=== PATIENT | male | born 1955 | race Caucasian/White ===

== ENCOUNTER 2021-06-29 14:38 | Emergency (ER) | payer MEDICAID ==
[2021-06-29 15:01] LABS: BASOPHILS # (AUTO) 0.1 10^3/uL (0.0-0.1); BASOPHILS % (AUTO) 0.7 %; EOSINOPHILS # (AUTO) 0.3 10^3/uL (0.0-0.7); EOSINOPHILS % (AUTO) 2.6 %; HGB - HEMOGLOBIN 12.4 g/dL (14.0-18.0); LYMPHOCYTES # (AUTO) 2.3 10^3/uL (1.5-3.5); LYMPHOCYTES % (AUTO) 19.8 %; MEAN CORPUSCULAR HEMOGLOBIN 30.9 pg (27.0-31.0); MEAN CORPUSCULAR HGB CONC 33.5 g/dL (32.0-36.0); MEAN CORPUSCULAR VOLUME 92.3 fL (80.0-94.0); MEAN PLATELET VOLUME 8.2 fL (7.4-11.4); MONOCYTES # (AUTO) 1.2 10^3/uL (0.0-1.0); NEUTROPHILS # (AUTO) 7.8 10^3/uL (1.5-6.6); NEUTROPHILS % (AUTO) 66.7 %; PLT - PLATELET COUNT 365 10^3/uL (130-450); RED BLOOD COUNT 4.01 10^6/uL (4.70-6.10); RED CELL DISTRIBUTION WIDTH 12.3 % (12.0-15.0); WHITE BLOOD COUNT 11.7 x10^3/uL (4.8-10.8)
[2021-06-29 15:15] LABS: ALBUMIN/GLOBULIN RATIO 1.1 (1.0-2.2); BILIRUBIN,TOTAL 0.5 mg/dL (0.2-1.0); CALCIUM 9.2 mg/dL (8.5-10.3); CREATININE 0.7 mg/dL (0.6-1.2); POTASSIUM 4.3 mmol/L (3.5-5.0); TOTAL PROTEIN 7.8 g/dL (6.7-8.2)
--- NOTE | 2021-06-29 15:39 | ED Physician Documentation ---
History of Present Illness - Stated complaint Stated Complaint: BLOOD IN URINE - Chief complaint Chief Complaint: Abd Pain - Additonal information Additional information: 66-year-old male presents the emergency department for evaluation of painful hematuria that he noted this morning. He reports passing blood clots. There have been no fevers. No history of hematuria in the past no history of nephrolithiasis. This gentleman reports that he was rather constipated for about a week and he took some laxatives which resolved the constipation that then he felt rectal tenderness so he took some aspirin about 3 days ago. He denies that he is having hematochezia or melena. Denies daily NSAID or aspirin use. Not anticoagulated. No history of previous surgical history. Daily tobacco user no alcohol use. Review of Systems Constitutional: denies: Fever, Chills Eyes: reports: Reviewed and negative Nose: reports: Reviewed and negative Throat: reports: Reviewed and negative Cardiac: reports: Reviewed and negative Respiratory: reports: Reviewed and negative GI: reports: Abdominal Pain, Constipation. denies: Nausea, Vomiting, Hematemesis, Bloody / black stool : reports: Dysuria, Hematuria Skin: reports: Reviewed and negative Musculoskeletal: reports: Reviewed and negative Neurologic: reports: Reviewed and negative Psychiatric: reports: Reviewed and negative PD PAST MEDICAL HISTORY - Present Medications Home Medications: Ambulatory Orders Medication Instructions Recorded Confirmed Ciprofloxacin HCl [Cipro] 500 mg PO BID #20 tablet 06/29/21 - Allergies Allergies/Adverse Reactions: Allergies Allergy/AdvReac Type Severity Reaction Status Date / Time No Known Drug Allergies Allergy Verified 06/29/21 14:47 PD ED PE EXPANDED - General General: Alert, No acute distress - Cardiac Cardiac: Regular Rate, Radial strong equal, Cap refill < 2 sec - Respiratory Respiratory: Clear to ausultation luciana. No: Distress, Labored - Abdomen Abdomen: Normal Bowel sounds, Tender to palpation, Generalized/diffuse (generalized abdominal tenderness without guarding or rebound). No: Rebound, Guarding - Derm Derm: Normal color, Warm and dry. No: Rash - Extremities Extremities: Normal. No: Deformity, Tenderness - Neuro Neuro: Alert and Oriented X 3, CNII-XII intact - GCS Eye Opening: Spontaneous Motor: Obeys Commands Verbal: Oriented Total: 15 Results - Vitals Vitals: Vital Signs - 24 hr 06/29/21 06/29/21 06/29/21 14:43 15:30 15:32 Temperature 36 C L 37.1 C Heart Rate 96 79 86 Respiratory 16 16 Rate Blood Pressure 112/67 109/75 O2 Saturation 99 99 100 Oxygen O2 Source Room air - Labs Labs: Laboratory Tests 06/29/21 06/29/21 06/29/21 14:55 14:55 14:55 WBC 11.7 H RBC 4.01 L Hgb 12.4 L Hct 37.0 L MCV 92.3 MCH 30.9 MCHC 33.5 RDW 12.3 Plt Count 365 MPV 8.2 Neut # (Auto) 7.8 H Lymph # (Auto) 2.3 [place] # (Auto) 1.2 H Eos # (Auto) 0.3 Baso # (Auto) 0.1 Absolute Nucleated RBC 0.00 Nucleated RBC % 0.0 Sodium 131 L Potassium 4.3 Chloride 93 L Carbon Dioxide 30 Anion Gap 8.0 BUN 11 Creatinine 0.7 Estimated GFR (MDRD) 114 Glucose 117 H Calcium 9.2 Total Bilirubin 0.5 AST 16 ALT 15 Alkaline Phosphatase 86 Total Protein 7.8 Albumin 4.0 Globulin 3.8 Albumin/Globulin Ratio 1.1 Lipase 25 Urine Color Urine Clarity Urine pH Ur Specific [place] Urine Protein Urine Glucose (UA) Urine Ketones Urine Occult Blood Urine Nitrite Urine Bilirubin Urine Urobilinogen Ur Leukocyte Esterase Urine RBC Urine WBC Ur Squamous Epith Cells Urine Bacteria Ur Microscopic Review Urine Culture Comments Blood Type A POSITIVE Antibody Screen NEGATIVE 06/29/21 15:20 WBC RBC Hgb Hct MCV MCH MCHC RDW Plt Count MPV Neut # (Auto) Lymph # (Auto) [place] # (Auto) Eos # (Auto) Baso # (Auto) Absolute Nucleated RBC Nucleated RBC % Sodium Potassium Chloride Carbon Dioxide Anion Gap BUN Creatinine Estimated GFR (MDRD) Glucose Calcium Total Bilirubin AST ALT Alkaline Phosphatase Total Protein Albumin Globulin Albumin/Globulin Ratio Lipase Urine Color RED/BLOODY Urine Clarity BLOODY Urine pH 7.0 Ur Specific [place] 1.015 Urine Protein >=300 H Urine Glucose (UA) 100 H Urine Ketones 15 H Urine Occult Blood LARGE H Urine Nitrite POSITIVE H Urine Bilirubin NEGATIVE Urine Urobilinogen >=8.0 H Ur Leukocyte Esterase LARGE H Urine RBC TNTC H Urine WBC 11-25 H Ur Squamous Epith Cells FEW Squamous Urine Bacteria Few Ur Microscopic Review INDICATED Urine Culture Comments INDICATED Blood Type Antibody Screen - Rads (name of study) CT abd/pelvis Radiology: Final report received (Diffuse irregular bladder wall thickening and enhancement is most consistent with a bladder carcinoma. Urologic consult advised. Large left inguinal subcutaneous cyst likely a sebaceous cyst.) PD MEDICAL DECISION MAKING - ED course Complexity details: reviewed results, considered differential, d/w patient ED course: 66-year-old male presents emergency department for evaluation of acute hematuria that he noted this morning. He does also endorse dysuria. Urine does show signs of infection. However CT scan is concerning for a bladder carcinoma. He does not have signs of urinary obstruction. This gentleman is without any insurance options. Given the hour of the day social work is not available but I will request that they follow-up with him tomorrow. I have also asked patient registration to see the patient to help him begin the process of obtaining insurance. Patient will be started on ciprofloxacin. Given the name of Dr. Law Yi outpatient physician who is seeing ER patients in follow-up next week. Discussed the concerns for obstruction in the setting of significant hematuria. Emergent return precautions were otherwise discussed. Departure - Departure Disposition: 01 Home, Self Care Clinical Impression: Bladder mass Hematuria Qualifiers: Hematuria type: gross Qualified Code(s): R31.0 - Gross hematuria UTI (urinary tract infection) Qualifiers: Urinary tract infection type: acute cystitis Hematuria presence: with hematuria Qualified Code(s): N30.01 - Acute cystitis with hematuria Record reviewed to determine appropriate education?: Yes Instructions: Cancer Bladder Follow-Up: Cong Morales MD [Physician No Access] - Prescriptions: Ciprofloxacin HCl [Cipro] 500 mg PO BID #20 tablet Comments: Daniel you are seen in the emergency department today for blood in your urine. Unfortunately the CAT scan shows that you most likely have cancer within your bladder. There is also concerned that you have infection with in your urine. Please fill the prescription for the antibiotic. It has been sent electronically to the [facility] in [place]. It is going to be very important that you establish care with a primary care doctor. You will need referral to a urologist and/or a r developer for further evaluation and treatment of the cancer. I will make sure that our manager social services is able to call you tomorrow to help follow-up with obtaining insurance. If at any point you are unable to urinate, you have fevers, chest pain or unco ntrolled vomiting then please return immediately to the emergency department. I have given you the name and number of Dr. Morales. He is the physician that is seeing ER patients in follow-up next week. It is important that you call to schedule this appointment.
[2021-06-29 15:43] LABS: BILIRUBIN,URINE NEGATIVE (NEGATIVE); GLUCOSE, URINE (UA) 100 mg/dL (NEGATIVE); KETONES,URINE (UA) 15 mg/dL (NEGATIVE); LEUKOCYTE ESTERASE, URINE LARGE (NEGATIVE); NITRITE,URINE POSITIVE (NEGATIVE); OCCULT BLOOD,URINE LARGE (NEGATIVE); PROTEIN,URINE >=300 mg/dL (NEGATIVE); UROBILINOGEN,URINE >=8.0 E.U./dL (NORMAL)
[2021-06-29] MEDS ORDERED: IOVERSOL 320 100 ML VIAL IVP ONE ×2 (15:43→16:18)
[2021-06-29 15:46] LABS: CLARITY,URINE BLOODY (CLEAR)
[2021-06-29 15:52] LABS: BACTERIA,URINE Few /HPF (None Seen); RBC,URINE TNTC /HPF (0-5); SQUAMOUS EPITHELIAL CELL,UR FEW Squamous (<= Few)
[2021-06-29] MEDS ORDERED: cefTRIAXone 1 GM in SODIUM CHLORIDE 0.9% MINIBAG 100 ML IV STA (15:54)
--- NOTE | 2021-06-29 16:42 | CT Report ---
PROCEDURE: CT abdomen and pelvis with contrast INDICATIONS: hematuria; recent constipation and now rectal pain CONTRAST: IV CONTRAST: Optiray 320 ml: 100 PO CONTRAST: *NO PO CONTRAST TECHNIQUE: After the administration of intravenous contrast, 5 mm thick sections acquired from the diaphragms to the symphysis. 5 mm thick coronal and sagittal reformats were acquired. For radiation dose reducti on, the following was used: automated exposure control, adjustment of mA and/or kV according to pedrito ent size. COMPARISON: None. FINDINGS: Image quality: Excellent. ABDOMEN: Lung bases: Lung bases are clear. Heart size is normal. Solid organs: Liver and spleen are normal in size and enhancement. Gallbladder unremarkable Biliar y system is non dilated. Pancreas enhances normally. No adrenal nodules. Kidneys demonstrate syeda l size and enhancement, without hydronephrosis. Peritoneum and bowel: Bowel loops demonstrate normal wall thickness and caliber. No free fluid or a ir. Nodes and vessels: No retroperitoneal or mesenteric adenopathy by size criteria. Aorta and inferior vena cava are normal in size. Diffuse atherosclerotic vascular calcification abdominal aorta withou t aneurysm or dissection. Miscellaneous: No ventral hernias. PELVIS: Genitourinary: Urinary bladder is grossly of normal. There is irregular wall thickening, irregular en hancement and left-sided bladder diverticulum measuring 3.3 cm. Miscellaneous: No inguinal hernias or adenopathy. Left inguinal subcutaneous cyst measures 3.2 cm, probably reflects sebaceous cyst. Bones: No suspicious bony lesions. No vertebral body compression fractures. IMPRESSION: 1. Diffuse irregular bladder wall thickening and enhancement is most consistent with bladder carcinom a. Urologic consult advised. 2. Large left inguinal subcutaneous cyst, likely sebaceous cyst. Reviewed by: Ike Matos MD on 06/29/2021 3:40 PM AKDT Approved by: Ike Matos MD on 06/29/2021 3:40 PM AKDT Station ID: [id number]
[2021-06-29 17:07] VITALS: BP 121/75
[2021-06-29] MEDS ORDERED: SODIUM CHLORIDE 0.9% 1,000 ML IV STA (17:10)
== END 2021-06-29 17:34 | disposition home or self-care (01) ==
LOC: ED 14:38
DX: N30.01 Acute cystitis with hematuria (principal); N32.89 Other specified disorders of bladder; F17.200 Nicotine dependence, unspecified, uncomplicated
CPT/HCPCS: 36415; 74177; 80053; 81001; 83690; 85025; 86850; 86900; 86901; 87086; 96365; 99284; Q9967; 81003

== ENCOUNTER 2021-08-04 10:05 | Emergency (ER) | payer MEDICAID ==
[2021-08-04 11:32] LABS: BILIRUBIN,URINE NEGATIVE (NEGATIVE); GLUCOSE, URINE (UA) NEGATIVE (NEGATIVE); KETONES,URINE (UA) NEGATIVE (NEGATIVE); LEUKOCYTE ESTERASE, URINE MODERATE (NEGATIVE); NITRITE,URINE NEGATIVE (NEGATIVE); OCCULT BLOOD,URINE LARGE (NEGATIVE); PROTEIN,URINE 100 mg/dL (NEGATIVE); UROBILINOGEN,URINE 0.2 (NORMAL) E.U./dL (NORMAL)
--- NOTE | 2021-08-04 11:39 | ED Physician Documentation ---
History of Present Illness - Stated complaint Stated Complaint: MALE - Chief complaint Chief Complaint: UTI - Additonal information Additional information: 66-year-old male returns to the emergency department with chief complaint of dysuria and hematuria. He was seen by me on 07-18 with the same complaint. Unfortunately CT of the abdomen and pelvis showed a mass within the bladder likely representing a carcinoma. These findings were discussed at length with the patient. He has been able to arrange follow-up with urology on August 13 with [facility]. At the time of the last visit I did Tim a prescription for antibiotics which he stated improve the hematuria until now. He does not feel obstructed. Reports passing small clots but feels as though he is able to fully empty bladder Patient denies weight loss but states he does not weigh himself. No cough increasing fatigue, fevers or night sweats. He states that he has felt well until he began having hematuria again last night. Review of Systems Constitutional: denies: Fever, Chills, Fatigue, Weight Loss, Sweats Eyes: reports: Reviewed and negative Nose: reports: Reviewed and negative Throat: reports: Reviewed and negative Cardiac: reports: Reviewed and negative Respiratory: reports: Reviewed and negative GI: reports: Abdominal Pain : reports: Dysuria, Hematuria Skin: reports: Reviewed and negative Musculoskeletal: reports: Reviewed and negative PD PAST MEDICAL HISTORY - Present Medications Home Medications: Ambulatory Orders Medication Instructions Recorded Confirmed No Known Home Medications 08/04/21 08/04/21 - Allergies Allergies/Adverse Reactions: Allergies Allergy/AdvReac Type Severity Reaction Status Date / Time No Known Drug Allergies Allergy Verified 08/04/21 10:17 PD ED PE EXPANDED - General General: Alert, Other (Thin cachectic appearance) - Cardiac Cardiac: Regular Rate, Radial strong equal, Pedal strong equal, Cap refill < 2 sec. No: Murmur Present - Respiratory Respiratory: Clear to ausultation luciana. No: Distress, Labored - Abdomen Abdomen: Normal Bowel sounds, Tender to palpation, Suprapubic (Suprapubic tenderness without guarding or rebound. No flank or CVA tenderness noted. Negative McBurney's negative Gomez's.) - Back Back: Normal exam. No: Soft tissue tenderness, CVA TTP right, CVA TTP left - Derm Derm: Normal color, Warm and dry. No: Rash, Petecchiae, Purpura - Extremities Extremities: Normal. No: Deformity, Tenderness - Neuro Neuro: Alert and Oriented X 3, CNII-XII intact - GCS Eye Opening: Spontaneous Motor: Obeys Commands Verbal: Oriented Total: 15 Results - Vitals Vitals: Vital Signs - 24 hr 08/04/21 10:14 Temperature 36.4 C L Heart Rate 84 Respiratory 14 Rate Blood Pressure 113/63 O2 Saturation 99 Oxygen O2 Source Room air - Labs Labs: Laboratory Tests 08/04/21 08/04/21 08/04/21 11:15 11:54 11:54 WBC 10.1 RBC 3.65 L Hgb 10.8 L Hct 33.7 L MCV 92.3 MCH 29.6 MCHC 32.0 RDW 12.7 Plt Count 341 MPV 8.5 Neut # (Auto) 7.3 H Lymph # (Auto) 1.6 [place] # (Auto) 0.9 Eos # (Auto) 0.3 Baso # (Auto) 0.1 Absolute Nucleated RBC 0.00 Nucleated RBC % 0.0 Sodium 140 Potassium 3.8 Chloride 102 Carbon Dioxide 27 Anion Gap 11.0 BUN 13 Creatinine 0.9 Estimated GFR (MDRD) 85 L Glucose 99 Calcium 9.2 Total Bilirubin 0.7 AST 11 ALT 14 Alkaline Phosphatase 82 Total Protein 7.4 Albumin 3.7 Globulin 3.7 Albumin/Globulin Ratio 1.0 Lipase 21 L Urine Color LT RED Urine Clarity CLOUDY Urine pH 6.0 Ur Specific [place] 1.020 Urine Protein 100 H Urine Glucose (UA) NEGATIVE Urine Ketones NEGATIVE Urine Occult Blood LARGE H Urine Nitrite NEGATIVE Urine Bilirubin NEGATIVE Urine Urobilinogen 0.2 (NORMAL) Ur Leukocyte Esterase MODERATE H Urine RBC TNTC H Urine WBC >25 H Ur Epithelial Cells RARE Renal Tubular Ur Squamous Epith Cells RARE Squamous Urine Bacteria Rare Ur Microscopic Review INDICATED Urine Culture Comments INDICATED PD MEDICAL DECISION MAKING - ED course Complexity details: reviewed results, re-evaluated patient, d/w patient ED course: 66-year-old male return to the emergency department for evaluation of hematuria. I saw him for similar in early June and a CT of the abdomen showed a bladder mass likely a carcinoma. This gentleman is scheduled to see urology on 13 August. At the time of the first ED visit he was sent home with a prescription for antibiotics however today's urine though there are many WBCs there are very rare bacteria. Last culture was negative. I will defer antibiotics at this time unless the culture is positive. Screening CBC and chemistry are otherwise unremarkable. This gentleman was given a CD disc of his recent imaging to take with him to the follow-up appointment. Reassuringly though he has hematuria there is no obstruction. Emergent return precautions were discussed. Departure - Departure Disposition: 01 Home, Self Care Clinical Impression: Hematuria Qualifiers: Hematuria type: gross Qualified Code(s): R31.0 - Gross hematuria Condition: Stable Record reviewed to determine appropriate education?: Yes Comments: Daniel your urine today does not suggest infection. I would like to defer any antibiotics unless the culture is positive. The blood in your urine can be uncomfortable when you pee. I encourage you to stay very well-hydrated in order to help you pass the urine and blood clots more easily. If at any point you feel that you cannot adequately pee, your bladder is getting distended or you are developing abdominal pain or fevers then please return to the ER. We are giving you a CD Josep disc to take with you to your urology appointment next week.
[2021-08-04 11:40] LABS: CLARITY,URINE CLOUDY (CLEAR)
[2021-08-04 11:53] LABS: BACTERIA,URINE Rare /HPF (None Seen); EPITHELIAL CELLS,UR RARE Renal Tubular /HPF (<= Few); RBC,URINE TNTC /HPF (0-5); SQUAMOUS EPITHELIAL CELL,UR RARE Squamous (<= Few); WBC,URINE >25 /HPF (0-3)
[2021-08-04 11:59] LABS: BASOPHILS # (AUTO) 0.1 10^3/uL (0.0-0.1); BASOPHILS % (AUTO) 0.8 %; EOSINOPHILS # (AUTO) 0.3 10^3/uL (0.0-0.7); EOSINOPHILS % (AUTO) 2.7 %; HCT - HEMATOCRIT 33.7 % (42.0-52.0); HGB - HEMOGLOBIN 10.8 g/dL (14.0-18.0); LYMPHOCYTES # (AUTO) 1.6 10^3/uL (1.5-3.5); LYMPHOCYTES % (AUTO) 15.7 %; MEAN CORPUSCULAR HEMOGLOBIN 29.6 pg (27.0-31.0); MEAN CORPUSCULAR VOLUME 92.3 fL (80.0-94.0); MEAN PLATELET VOLUME 8.5 fL (7.4-11.4); MONOCYTES # (AUTO) 0.9 10^3/uL (0.0-1.0); MONOCYTES % (AUTO) 8.6 %; NEUTROPHILS # (AUTO) 7.3 10^3/uL (1.5-6.6); NEUTROPHILS % (AUTO) 71.9 %; PLT - PLATELET COUNT 341 10^3/uL (130-450); RED BLOOD COUNT 3.65 10^6/uL (4.70-6.10); RED CELL DISTRIBUTION WIDTH 12.7 % (12.0-15.0); WHITE BLOOD COUNT 10.1 x10^3/uL (4.8-10.8)
[2021-08-04 12:11] LABS: ALBUMIN 3.7 g/dL (3.2-5.5); BILIRUBIN,TOTAL 0.7 mg/dL (0.2-1.0); CALCIUM 9.2 mg/dL (8.5-10.3); CREATININE 0.9 mg/dL (0.6-1.2); POTASSIUM 3.8 mmol/L (3.5-5.0); TOTAL PROTEIN 7.4 g/dL (6.7-8.2)
[2021-08-04 12:27] VITALS: BP 112/65
== END 2021-08-04 12:25 | disposition home or self-care (01) ==
LOC: ED 10:05
DX: R31.0 Gross hematuria (principal); N32.89 Other specified disorders of bladder
CPT/HCPCS: 36415; 80053; 81001; 81003; 83690; 85025; 87086; 99283; 99284

== ENCOUNTER 2022-07-04 09:15 | Inpatient (IN) | payer MEDICAID ==
--- NOTE | 2022-07-04 09:56 | XRAY Report ---
PROCEDURE: Chest 1 View X-Ray INDICATIONS: SOA TECHNIQUE: One view of the chest was acquired. COMPARISON: Lung bases on CT abdomen and pelvis 06/29/2021. FINDINGS: Surgical changes and devices: Right-sided port with the catheter tip at the lower third of the SVC. Lungs and pleura: No pleural effusions or pneumothorax. Lungs are clear. Lung volumes are somewhat prominent. Mediastinum: Mediastinal contours appear normal. Heart size is normal. Bones and chest wall: No suspicious bony lesions. Overlying soft tissues appear unremarkable. IMPRESSION: No acute cardiopulmonary abnormality. Reviewed by: Rj Williamson MD on 07/04/2022 9:54 AM PDT Approved by: Rj Williamson MD on 07/04/2022 9:54 AM PDT Station ID: [id number]
[2022-07-04 10:10] LABS: BASOPHILS % (AUTO) 0.9 %; EOSINOPHILS % (AUTO) 0.2 %; HGB - HEMOGLOBIN 9.4 g/dL (14.0-18.0); LYMPHOCYTES % (AUTO) 4.2 %; MEAN CORPUSCULAR HEMOGLOBIN 32.3 pg (27.0-31.0); MEAN CORPUSCULAR HGB CONC 36.2 g/dL (32.0-36.0); MEAN CORPUSCULAR VOLUME 89.3 fL (80.0-94.0); MEAN PLATELET VOLUME 11.2 fL (7.4-11.4); MONOCYTES % (AUTO) 11.8 %; NEUTROPHILS % (AUTO) 81.6 %; PLT - PLATELET COUNT 97 10^3/uL (130-450); RED BLOOD COUNT 2.91 10^6/uL (4.70-6.10); WHITE BLOOD COUNT 13.2 x10^3/uL (4.8-10.8)
[2022-07-04 10:13] LABS: SLIDE REVIEW? Indicated
[2022-07-04 10:14] LABS: ABNORMAL LYMPHS % (MANUAL) 0 %
[2022-07-04 11:01] LABS: BAND NEUTROPHILS % (MANUAL) 27 %; LYMPHOCYTES # (MANUAL) 1.1 10^3/uL (1.5-3.5); LYMPHOCYTES % (MANUAL) 8 %; METAMYELOCYTES % (MANUAL) 3 %; MONOCYTES # (MANUAL) 1.1 10^3/uL (0.0-1.0); NEUTROPHILS # (MANUAL) 10.7 10^3/uL (1.5-6.6)
[2022-07-04 11:04] LABS: PLATELET ESTIMATE, MANUAL DECREASED (<130,000) (NORMAL); PLATELET MORPHOLOGY NORMAL APPEARANCE (NORMAL); RBC MORPHOLOGY (MULTIPLE) 1+ ANISOCYTOSIS (NORMAL)
[2022-07-04 11:04] LABS: ALBUMIN/GLOBULIN RATIO 0.8 (1.0-2.2); BILIRUBIN,TOTAL 0.6 mg/dL (0.2-1.0); CALCIUM 7.8 mg/dL (8.5-10.3); CREATININE 4.3 mg/dL (0.6-1.2); POTASSIUM 3.5 mmol/L (3.5-5.0); TOTAL PROTEIN 6.6 g/dL (6.7-8.2)
[2022-07-04 11:05] LABS: DIFFERENTIAL COMMENT MANUAL DIFFERENTIAL; WBC MORPHOLOGY (MULTIPLE) 2+ TOXIC GRANULATION (NORMAL)
[2022-07-04] MEDS ORDERED: SODIUM CHLORIDE 0.9% 1,000 ML IV STA (13:22)
--- NOTE | 2022-07-04 14:35 | ED Physician Documentation ---
History of Present Illness - Stated complaint Stated Complaint: WEAKNESS - Chief complaint Chief Complaint: Abd Pain - History obtained from History obtained from: Patient - History of Present Illness Timing: How many weeks ago (1) - Additonal information Additional information: 67-year-old male with history of bladder cancer on chemotherapy presents by private vehicle for 1 week of hyperventilation, hiccups, malaise. Patient states he is postop recently from a cyst removal on his bladder. Today he was feeling weaker than usual and presented for evaluation. Review of Systems Ten Systems: 10 systems reviewed and negative Constitutional: reports: Fatigue. denies: Fever, Chills GI: reports: Other (Anorexia). denies: Abdominal Pain, Nausea, Vomiting, Constipation, Diarrhea : reports: Frequency. denies: Dysuria, Hesitancy Musculoskeletal: denies: Neck pain, Back pain, Extremity pain, Joint pain PD PAST MEDICAL HISTORY - Past Medical History Past Medical History: Yes - Present Medications Home Medications: Ambulatory Orders Medication Instructions Recorded Confirmed No Known Home Medications 08/04/21 08/04/21 - Allergies Allergies/Adverse Reactions: Allergies Allergy/AdvReac Type Severity Reaction Status Date / Time No Known Drug Allergies Allergy Verified 07/04/22 09:35 PD ED PE NORMAL - Vitals Vital signs reviewed: Yes - General General: Alert and oriented X 3, No acute distress, Well developed/nourished - HEENT HEENT: Atraumatic, PERRL, Other (dry mucous membranes) - Neck Neck: Supple, no meningeal sign, No bony TTP - Cardiac Cardiac: RRR, No murmur, Strong equal pulses - Respiratory Respiratory: No respiratory distress, Clear bilaterally - Abdomen Abdomen: Soft, Non distended, Other (Tender LLQ at previous surgical site) - Back Back: No CVA TTP, No spinal TTP - Derm Derm: Normal color, Warm and dry, No rash - Extremities Extremities: No deformity, No tenderness to palpate, Normal ROM s pain, No edema - Neuro Neuro: Alert and oriented X 3, 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, No motor deficit, No sensory deficit, Normal speech - Psych Psych: Normal mood, Normal affect Results - Vitals Vitals: Vital Signs - 24 hr 07/04/22 07/04/22 09:29 14:12 Temperature 36.5 C Heart Rate 87 78 Respiratory 17 20 Rate Blood Pressure 120/63 130/70 O2 Saturation 98 100 Oxygen O2 Source Room air - Labs Labs: Laboratory Tests 07/04/22 07/04/22 07/04/22 10:04 10:35 14:52 WBC 13.2 H RBC 2.91 L Hgb 9.4 L Hct 26.0 L MCV 89.3 MCH 32.3 H MCHC 36.2 H RDW 14.0 Plt Count 97 L MPV 11.2 Neut # (Auto) Not Reportable Lymph # (Auto) Not Reportable [place] # (Auto) Not Reportable Eos # (Auto) Not Reportable Baso # (Auto) Not Reportable Absolute Nucleated RBC Not Reportable Total Counted 100 Band Neuts % (Manual) 27 H Abnorm Lymph % (Manual) 0 Metamyelocytes % 3 H Nucleated RBC % Not Reportable Neutrophils # (Manual) 10.7 H Lymphocytes # (Manual) 1.1 L Monocytes # (Manual) 1.1 H Eosinophils # (Manual) 0.0 Basophils # (Manual) 0.0 Differential Comment MANUAL DIFFERENTIAL Manual Slide Review Indicated WBC Morphology 2+ TOXIC GRANULATION Platelet Estimate DECREASED (<130,000) Platelet Morphology NORMAL APPEARANCE RBC Morph Micro Appear 1+ ANISOCYTOSIS Sodium 122 L Potassium 3.5 Chloride 79 L* Carbon Dioxide 28 Anion Gap 15.0 H BUN 91 H* Creatinine 4.3 H Estimated GFR (MDRD) 14 L Glucose 108 H Calcium 7.8 L Total Bilirubin 0.6 AST 27 ALT 27 Alkaline Phosphatase 89 Total Protein 6.6 L Albumin 3.0 L Globulin 3.6 Albumin/Globulin Ratio 0.8 L Lipase 24 Urine Color STRAW Urine Clarity CLOUDY Urine pH 6.0 Ur Specific [place] <=1.005 Urine Protein 100 H Urine Glucose (UA) NEGATIVE Urine Ketones NEGATIVE Urine Occult Blood LARGE H Urine Nitrite NEGATIVE Urine Bilirubin NEGATIVE Urine Urobilinogen 0.2 (NORMAL) Ur Leukocyte Esterase LARGE H Urine RBC 11-25 H Urine WBC >25 H Ur Squamous Epith Cells NONE SEEN Urine Bacteria Moderate H Ur Microscopic Review INDICATED Urine Culture Comments INDICATED PD MEDICAL DECISION MAKING - ED course Complexity details: reviewed results, re-evaluated patient, considered differential, d/w patient ED course: Patient presenting for generalized weakness, hiccups, decreased p.o. intake over the last week. He is found to be in acute kidney failure. 1 year ago patient's creatinine 0.9, today creatinine 4.3. Potassium within normal limits. Suspect secondary to decreased p.o. intake and dehydration following chemotherapy. Patient also reports urinary frequency, UA significant for many wbcs and leukocyte esterase. Patient given liters of IV fluids, IV rocephin, and will be admitted for further treatment. Departure - Departure Disposition: 66 [facility] DC/Xfer Clinical Impression: Dehydration, Acute kidney failure, UTI (urinary tract infection), Bladder cancer Condition: Stable Discharge Date/Time: 07/04/22 17:17
[2022-07-04 15:09] LABS: BILIRUBIN,URINE NEGATIVE (NEGATIVE); GLUCOSE, URINE (UA) NEGATIVE (NEGATIVE); KETONES,URINE (UA) NEGATIVE (NEGATIVE); LEUKOCYTE ESTERASE, URINE LARGE (NEGATIVE); NITRITE,URINE NEGATIVE (NEGATIVE); OCCULT BLOOD,URINE LARGE (NEGATIVE); PROTEIN,URINE 100 mg/dL (NEGATIVE); UROBILINOGEN,URINE 0.2 (NORMAL) E.U./dL (NORMAL)
[2022-07-04 15:14] LABS: CLARITY,URINE CLOUDY (CLEAR)
[2022-07-04 15:30] LABS: BACTERIA,URINE Moderate /HPF (None Seen); SQUAMOUS EPITHELIAL CELL,UR NONE SEEN (<= Few); WBC,URINE >25 /HPF (0-3)
[2022-07-04] MEDS ORDERED: ONDANSETRON 4 MG/2 ML VIAL IVP PRN (16:05)
[2022-07-04] MEDS ORDERED: SODIUM CHLORIDE FLUSH 0.9% 10 ML SYRINGE IVP PRN (16:05)
[2022-07-04] MEDS ORDERED: PROCHLORPERAZINE 10 MG/2 ML VIAL IVP PRN (16:05)
--- NOTE | 2022-07-04 16:16 | HISTORY & PHYSICAL EXAMINATION ---
Chief Complaint - Chief Complaint Chief Complaint: Weakness, intractable hiccups History of Present Illness - Admitted From Admitted From:: ED - History Obtained From History obtained from: ED provider and the patient - History of Present Illness HPI Comment/Other: This is a 67-year-old male who has a history of bladder cancer dx 1 year ago and is on chemotherapy at [facility] with Dr Licea. He has had about 4 out of 5 planned chemotherapy courses. Each chemo treatment drops his "blood cell counts" and he has not had the last course of chemo because his blood cell counts have not adequately risen. He states he does not want a blood transfusion, he only wants to take supplements, like Zinc, to "build his blood back up". He underwent removal of a cyst of the bladder a week ago by a different doctor. He has had anorexia and weakness over the past 1 week and complains of intractable hiccups also feeling more weak today, and almost no urine output for many days, the refore he presented on his own to the ED. For the hiccups all he has tried is holding his breath and hyperventilating. In the ED, he was found to have BUN/creat of 91/4.0 (his usual creatinine is 1.0). He also has an abnormal urinalysis with white blood cells of 25, and many bacteria seen. A chest x-ray was done that was WNL. No abdomine/pelvis CT was done. The patient started to receive IV fluids and iv Ceftriaxone in the ED, and the ED provider reached out to the Hospitalist team to the have the patient admitted for HIRO caused by volume depletion. I discussed his CODE BLUE wishes and he wants to be a Full Code. 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 He has known natural children Living arrangement: At home Living Situation: With family Social History Notes: He lives with his identical twin brother. He has never been . He smokes 4 cigarettes a day. He drinks rare alcohol. He uses THC occasionally for pain. 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 - Substance History Use: Uses substance without health or social issues: Tobacco, Alcohol, Cannabis Meds/Allgy - Home Medications Home Medications: Ambulatory Orders Medication Instructions Recorded Confirmed No Known Home Medications 08/04/21 08/04/21 - Allergies Allergies/Adverse Reactions: Allergies Allergy/AdvReac Type Severity Reaction Status Date / Time No Known Drug Allergies Allergy Verified 07/04/22 09:35 Review of Systems - Constitutional Constitutional: reports: Weakness, Poor appetite - Ears, Nose & Throat Ears, Nose & Throat: reports: Other (Edentulous, has dentures at home) - Genitourinary Genitourinary: reports: Other (Very little urine output over the past 1 week) - Neurological Neurological: reports: Other (Incessant hiccups, every 5 seconds, for the past several day) - Hematologic/Lymphatic Hematologic/Lymphatic: reports: Anemia (He does not want blood transfusions) - All Other Systems All Other Systems: reports: Reviewed and negative Exam - Vital Signs Vital Signs: Vital Signs x48h Temp Pulse Resp BP Pulse Ox 07/04/22 14:12 78 20 130/70 100 07/04/22 09:29 36.5 C 87 17 120/63 98 - Physical Exam General Appearance: positive: Alert, Moderate distress (from incessant hiccups), Other (Thin, cachectic, edentulous, poorly kempt.) Eyes Bilateral: positive: Normal inspection, EOMI ENT: positive: Dry mucous membranes, Other (incessant hiccups) Neck: positive: Nml inspection, No JVD Respiratory: positive: Other (Mild distress from hiccups and holds his breath in between) Cardiovascular: positive: Regular rate & rhythm, No murmur Abdomen: positive: Non-tender, Nml bowel sounds, No distention Skin: positive: Warm, Dry, Pallor, Other (Tenting) Extremities: positive: Non-tender, No pedal edema Neurologic/Psychiatric: positive: Oriented x3 (Non-focal) Conclusion/Plan - Problem List (1) HIRO (acute kidney injury) Conclusion/Plan: This patient currently has oliguric acute renal failure. Will admit the patient to Inpatient status. Start telemetry, in case of hyperkalemia Continue to administer IV fluids. Avoid nephrotoxins. Follow BMP daily With his history of bladder CA and his description of oliguria, will order CT abdomen/pelvis to look for obstructive uropathy, since CT imaging was not done in the ED. (2) Dehydration Conclusion/Plan: He has dry mucosa and skin tenting noticed diffusely. Continue with hydration as described above. We will try to treat his hiccups which may also help him improve his oral intake (3) Hyponatremia Conclusion/Plan: This is hypovolemic hyponatremia Continue IV saline that was started in the ED, at a moderate rate. Follow serum sodium closely so it is not too rapidly corrected. Follow BMP daily (4) UTI (urinary tract infection) Conclusion/Plan: He has an elevated white blood count and urinalysis very abnormal consistent with UTI. He did have recent instrumentation with the bladder cyst that had surgery. Will continue to treat his UTI using IV ceftriaxone daily. Await urine culture results and sensitivities to tailor antibiotics (5) Anemia Conclusion/Plan: Despite being volume contracted, he is very anemic with hemoglobin of 9. With volume replacement he is expected to become profoundly anemic and would likely need a blood transfusion if hemoglobin goes under 7, However, he says he would refuse a blood transfusion, and only wants to "take supplements and let the blood build up" Follow CBC daily. Will obtain iron panel, B12 and folate levels (6) Bladder cancer Conclusion/Plan: He reports bladder cancer was diagnosed 1 year ago. He has completed 4 out of 5 planned chemotherapies. Since the last 1 he has been too anemic to get chemo again. His chemo doctor is Dr. Schreiber at [facility]. His urologist is Dr. Melvi Gama in [place]. And it was a third doctor who did the bladder cyst maria teresa gery1 week ago. With his history and his description of oliguria, will order CT abdomen pelvis to look for obstruction, which was not done in the ED. Will also try to get detailed medical records from his bladder cancer doctor (7) Anorexia Conclusion/Plan: We will start IV fluids containing some calories, using D5NS Will request nutrition consult for possible PPN or TPN after a malnutrition risk screen is done. (However Nondestructive Tester are not here on the weekend and today is Thursday night) Will offer a soft diet (since he is edentulous) and encourage po fluid intake (8) Hiccups Conclusion/Plan: Discussed with [facility] pharmacy. We will start Haldol as needed - Lab Results Fish Bones: 07/05/22 04:51 07/05/22 04:51 - Diagnostic Imaging Results Diagnostic Imaging Results: positive: Final report reviewed - Other Other Results/Comments: Attestation: The patient is expected to be discharged or transferred to another facility within 96 hours: Yes.
[2022-07-04 16:28] LABS: VBG BASE EXCESS 3.6 mmol/L (-2 - +2); VBG HCO3 28.1 mmol/L (23-28); VBG OXYGEN SATURATION 52.9 % (60-80); VBG PCO2 42.4 mmHg (41-51); VBG PH 7.439 (7.31-7.41); VBG PO2 25.9 mmHg (25-47); VBG TOTAL CO2 29.4 mmol/L (24-29)
--- NOTE | 2022-07-04 17:50 | CT Report ---
PROCEDURE: Abdomen/Pelvis WO INDICATIONS: HIRO, oliguria, bladder CA, anorexia x1wk TECHNIQUE: Noncontrast 5 mm thick sections acquired from the diaphragms to the symphysis. 5 mm coronal and sagi ttal reformats were then performed. For radiation dose reduction, the following was used: automated exposure control, adjustment of mA and/or kV according to patient size. COMPARISON: CT abdomen and pelvis 06/29/2021. FINDINGS: Image quality: Excellent. ABDOMEN: Lung bases: No pleural effusion. Heart size is normal. Calcification in the region of the mitral cheri ve. Small pericardial effusion. Small hiatal hernia. Solid organs: Liver and spleen are normal in size. Gallbladder is not distended. Pancreas is syeda l in contours. No adrenal nodules. Kidneys are normal in size. Bilateral moderate to severe hydronephrosis, new. Bilateral hydroureter. Ureters are distended to the level of the urinary bladder. No stones. Peritoneum and bowel: Unenhanced bowel loops demonstrate normal wall thickness and caliber. No free fluid or air. Nodes and vessels: No retroperitoneal or mesenteric adenopathy by size criteria. Aorta and inferior vena cava are normal in caliber. Circumferential calcified metastatic plaque. Miscellaneous: No ventral hernias. PELVIS: Genitourinary: Bladder is likely only partially distended. There is abnormal bladder wall thickening at the right bladder measuring at 2.2 cm, (3/67). Abnormal contour of the right bladder. Possible rony or TURP. Trace free fluid in the pelvis. Miscellaneous: No inguinal hernias or adenopathy. Wound at the left groin. Lymph node in this regio n on prior CT. Bones: No suspicious bony lesions. DDD. No vertebral body compression fractures. IMPRESSION: 1. Moderate to severe bilateral hydroureteronephrosis. Level of obstruction at the urinary bladder. 2. Abnormal thickening at the right bladder in keeping with known bladder malignancy. 3. Trace free fluid in the pelvis. 4. Wound at the left groin. Results were communicated to Dr. Jenna Bueno at 07/04/2022 5:46 PM PDT. Reviewed by: Rj Williamson MD on 07/04/2022 5:49 PM PDT Approved by: Rj Williamson MD on 07/04/2022 5:49 PM PDT Station ID: [id number]
[2022-07-04] MEDS: SODIUM CHLORIDE FLUSH 0.9% 10 ML SYRINGE IVP SCH (18:08)
[2022-07-04] MEDS: SODIUM CHLORIDE 0.9% 1,000 ML IV SCH (18:08)
[2022-07-04] MEDS ORDERED: LIDOCAINE 2% URO-JET 5 ML SYRINGE UR ONE (19:34)
[2022-07-05] MEDS: SODIUM CHLORIDE FLUSH 0.9% 10 ML SYRINGE IVP SCH ×4 (00:30→23:48)
[2022-07-05] MEDS: ACETAMINOPHEN 325 MG TABLET PO PRN ×2 (01:07→21:03)
[2022-07-05] MEDS: HALOPERIDOL 5 MG/ML VIAL IVP PRN ×3 (01:08→17:51)
[2022-07-05 04:59] LABS: BASOPHILS % (AUTO) 0.3 %; EOSINOPHILS % (AUTO) 0.3 %; HCT - HEMATOCRIT 20.5 % (42.0-52.0); HGB - HEMOGLOBIN 7.5 g/dL (14.0-18.0); LYMPHOCYTES % (AUTO) 6.3 %; MEAN CORPUSCULAR HEMOGLOBIN 32.3 pg (27.0-31.0); MEAN CORPUSCULAR HGB CONC 36.6 g/dL (32.0-36.0); MEAN CORPUSCULAR VOLUME 88.4 fL (80.0-94.0); MEAN PLATELET VOLUME 10.3 fL (7.4-11.4); MONOCYTES % (AUTO) 11.5 %; NEUTROPHILS % (AUTO) 79.9 %; PLT - PLATELET COUNT 76 10^3/uL (130-450); RED BLOOD COUNT 2.32 10^6/uL (4.70-6.10); RED CELL DISTRIBUTION WIDTH 14.1 % (12.0-15.0); WHITE BLOOD COUNT 13.6 x10^3/uL (4.8-10.8)
[2022-07-05 05:03] LABS: ABNORMAL LYMPHS % (MANUAL) 0 %
[2022-07-05 05:21] LABS: BAND NEUTROPHILS % (MANUAL) 8 %; LYMPHOCYTES % (MANUAL) 7 %; NEUTROPHILS # (MANUAL) 11.7 10^3/uL (1.5-6.6); PLATELET ESTIMATE, MANUAL DECREASED (<130,000) (NORMAL); RBC MORPHOLOGY (MULTIPLE) NORMAL APPEARANCE (NORMAL)
[2022-07-05 05:22] LABS: DIFFERENTIAL COMMENT MANUAL DIFFERENTIAL
[2022-07-05 05:27] LABS: CALCIUM 7.2 mg/dL (8.5-10.3); CREATININE 3.9 mg/dL (0.6-1.2); POTASSIUM 3.3 mmol/L (3.5-5.0)
[2022-07-05] MEDS: SODIUM CHLORIDE 0.9% 1,000 ML IV SCH (05:44)
[2022-07-05] MEDS: cefTRIAXone 1 GM in SODIUM CHLORIDE 0.9% MINIBAG 100 ML IV SCH (09:20)
[2022-07-05] MEDS ORDERED: POTASSIUM CHLORIDE 10 MEQ CAPSULE PO ONE (12:00)
--- NOTE | 2022-07-05 12:08 | PROVIDER PROGRESS NOTE ---
Assessment/Plan - Problem List (1) HIRO (acute kidney injury) Assessment/Plan: His usual creatinine is 1.0 (per our records), he was admitted with creatinine of 4.3 therefore he is Inpatient status. By starting IV fluids, creatinine has improved to 3.9 today. Continue telemetry, in case of hyperkalemia Continue to administer IV fluids. Avoid nephrotoxins. Follow BMP daily With his history of bladder CA and his description of oliguria, we ordered CT abdomen/pelvis to look for obstructive uropathy, since CT imaging was not done in the ED and it was abnormal (see #5). (2) Dehydration Conclusion/Plan: He still has dry mucosa and skin tenting noticed diffusely. Continue with iv hydration as described above. Haldol did help to treat his hiccups which may also help him improve his oral intake (3) Hyponatremia Conclusion/Plan: This is hypovolemic hyponatremia. Na has improved from 122 to 126. Continue IV saline that was started in the ED, at a moderate rate. Follow serum sodium closely so it is not too rapidly corrected. Follow BMP daily (4) UTI (urinary tract infection) Conclusion/Plan: He had an elevated white blood count and urinalysis very abnormal consistent with UTI. He did have recent urinary tract instrumentation, with the bladder cyst surgery. Will continue to treat his UTI using IV ceftriaxone daily. Await urine culture results and sensitivities to tailor antibiotics Follow CBC daily (5) Hydronephrosis Conclusion/plan With his history of bladder CA and his description of oliguria, we ordered CT abdomen/pelvis to look for obstructive uropathy, since CT imaging was not done in the ED and it was abnormal, showing moder-severe Hydronephrosis with the obstruction at the bladder, not at the ureters. With this result, a Chávez was ordered and it has decompressed the bladder. Combination of Chávez plus IV fluids has helped with urine output and with improved creatinine. Continue with Chávez. I will try to reach his Urologist and/or Oncologist to discuss our findings and get recommendations (However today is Thursday, they may not be pharmacy operations coordinator or available) (6) Anemia Conclusion/Plan: Despite being volume contracted, he presented very anemic with hemoglobin of 9.4. With volume replacement, his Hgb dropped to 7.5 today. He may very likely need a blood transfusion if hemoglobin goes under 7, however, he told me at admission that he would refuse a blood transfusion, and only wants to "take supplements and let the blood build up" Follow CBC daily. Will obtain iron panel, B12 and folate levels (7) Bladder cancer Conclusion/Plan: He reports bladder cancer was diagnosed 1 year ago. He has completed 4 out of 5 planned chemotherapies. Since the last 1 he has been too anemic to get chemo again. His chemo doctor is Dr. Schreiber at [facility]. His urologist is Dr. Melvi Gama in [place]. And there was a third doctor who did the bladder cyst surgery1 week ago. With his history and his description of oliguria, will order CT abdomen pelvis to look for obstruction, which was not done in the ED, and it does show an obstructimng mass within tghe bladder, which is causing biklat hyronephrosis. Will also try to get detailed medical records from his bladder cancer doctor (8) Anorexia Conclusion/Plan: Improved. Today his RN reported he had an appetite and ate well, however after that he developed severe heartburn which is bringing back the hiccups. He requested TUMS or Mylanta, which was ordered. We are continuing IV fluids containing some calories, using D5NS Will request nutrition consult for possible PPN or TPN after a malnutrition risk screen is done. (However Gas Pumping Station Helper are not here on the weekend and today is Sat) Will offer a soft diet (since he is edentulous) and encourage po fluid intake (9) Hiccups Conclusion/Plan: We started iv Haldolprn, and it is helping. Will continue as needed - Current Meds Current Meds: Current Medications Generic Name Dose Route Start Last Admin Trade Name Freq PRN Reason Stop Dose Admin Acetaminophen 650 mg 07/04/22 16:05 07/05/22 01:07 Acetaminophen 325 Mg Tablet PO 650 mg Q4HR PRN Administration Pain 1 to 4, or Fever Haloperidol 1 mg 07/04/22 19:58 07/05/22 09:49 Haloperidol 5 Mg/Ml Vial IVP 1 mg Q6H PRN Administration Hiccups Sodium Chloride 1,000 mls @ 100 mls/hr 07/04/22 17:00 07/05/22 05:44 Normal Saline 0.9% IV 07/05/22 12:59 100 mls/hr .Q10H SIMON Administration Ceftriaxone Sodium 1 gm/ 100 mls @ 200 mls/hr 07/05/22 09:00 07/05/22 09:50 Sodium Chloride IV Infused DAILY SIMON Infusion Ondansetron HCl 4 mg 07/04/22 16:05 07/05/22 11:42 Ondansetron 4 Mg/2 Ml Vial IVP 4 mg Q6HR PRN Administration Nausea / Vomiting Sodium Chloride 10 ml 07/04/22 16:05 07/05/22 01:08 Sodium Chloride Flush 0.9% 10 Ml Syringe IVP 10 ml PRN PRN Administration NEEDED PER PROVIDER ORDERS Sodium Chloride 10 ml 07/04/22 17:00 07/05/22 09:20 Sodium Chloride Flush 0.9% 10 Ml Syringe IVP 10 ml 0100,0900,1700 SIMON Administration - Lab Result Fish Bone Diagrams: 07/05/22 04:51 07/05/22 04:51 - Additional Planning My Orders: My Active Orders 07/04/22 16:05 Activity Orders [RC] Q2HR IO [RC] IOSHIFT Initiate Bowel Care Protocol [RC] .protocol Initiate Line Care Protocol [RC] QSHIFT Initiate Personal Care Protoco [RC] .protocol Oxygen Therapy [RC] .PRN Telemetry- [RC] Q4HR Vital Signs [RC] Q4HR Acetaminophen [Tylenol] 650 mg PO Q4HR PRN Ondansetron Inj [Zofran Inj] 4 mg IVP Q6HR PRN Prochlorperazine Inj [Compazine Inj] 10 mg IVP Q6HR PRN Sodium Chloride Flush 0.9% [Normal Saline Flush 0.9%] 10 ml IVP PRN PRN Code Status [OTHERS] Routine Condition of Patient [OTHERS] Routine DVT Prophylaxis [OTHERS] Routine 07/04/22 16:07 Daily Weight [RC] 0600 07/04/22 16:08 SCDs [RC] QSHIFT 07/04/22 17:00 Sodium Chloride 0.9% [Normal Saline 0.9%] 1,000 ml IV 100 mls/hr Sodium Chloride Flush 0.9% [Normal Saline Flush 0.9%] 10 ml IVP 0100,0900,1700 07/04/22 19:34 Chávez Insertion [RC] QSHIFT 07/04/22 19:58 Haloperidol Inj [Haldol Inj] 1 mg IVP Q6H PRN 07/05/22 Breakfast DIET [Soft (Low Fiber) Diet] [DIET] 07/05/22 09:00 cefTRIAXone [Rocephin] 1 gm Sodium Chloride 0.9% Minibag [Normal Saline 0.9% Minibag] 100 ml IV DAILY 07/05/22 11:48 Calcium Carbonate [Tums] 500 mg PO BID PRN 07/05/22 11:49 Mag Hydrox/Al Hydrox/Simeth [Mylanta Plus] 30 ml PO Q4HR PRN 07/05/22 12:00 Potassium Chloride [Micro-K] 10 meq PO ONCE ONE 07/05/22 13:00 Dextrose 5%-0.9% NaCl [D5ns] 1,000 ml IV 100 mls/hr 07/06/22 05:00 BMP - BASIC METABOLIC PANEL [CHEM] DAILYLAB CBC - COMP BLD CT W/AUTO DIFF [HEME] DAILYLAB 07/07/22 05:00 BMP - BASIC METABOLIC PANEL [CHEM] DAILYLAB CBC - COMP BLD CT W/AUTO DIFF [HEME] DAILYLAB 07/08/22 05:00 BMP - BASIC METABOLIC PANEL [CHEM] DAILYLAB CBC - COMP BLD CT W/AUTO DIFF [HEME] DAILYLAB Subjective - Subjective Patient Reports: Feeling Better (The hiccups resolved with IV Haldol and he was able to get sleep for the first time in 4 days. He did have an appetite this a.m, ate breakfast and then now has severe heartburn, which is bringing back the hiccups.) Objective Vital Signs: Vital Signs - 24 hr 07/04/22 07/04/22 07/04/22 14:12 17:50 20:45 Temperature 37.4 C 37.3 C Heart Rate 78 Heart Rate [ 88 85 Brachial] Respiratory 20 18 18 Rate Blood Pressure 130/70 Blood Pressure 139/71 H 126/53 L [Left Brachial artery] Blood Pressure [Right Brachial artery] O2 Saturation 100 99 95 07/05/22 07/05/22 07/05/22 00:50 05:00 : Temperature 37.2 C 37 C 37.1 C Heart Rate Heart Rate [ 86 77 Brachial] Respiratory 18 18 16 Rate Blood Pressure Blood Pressure [Left Brachial artery] Blood Pressure 131/47 H 114/62 104/49 L [Right Brachial artery] O2 Saturation 97 77 L 96 Oxygen O2 Source Room air I&O (Last 24 Hrs): Intake and Output Totals x24h 07/03/22 07/04/22 07/05/22 23:59 23:59 23:59 Intake Total 4233.995 0808.667 Output Total 400 1450 Balance 653.333 136.667 General: Alert, Oriented x3, Other (Poorly kempt, cachectic) HEENT: Other (Dry mucosa, edentulous.) Neck: Supple, No JVD Neuro: Alert, Non Focal Cardiovascular: Regular rate, No murmurs Respiratory: No respiratory distress, Breath sounds nml Abdomen: Normal bowel sounds, Soft, No tenderness Genitourinary: Other (Chávez in place) Extremities: No clubbing, No edema, No tenderness/swelling - Results Results: Laboratory Results WBC 13.6 x10^3/uL (4.8-10.8) H 07/05/22 04:51 RBC 2.32 10^6/uL (4.70-6.10) L 07/05/22 04:51 Hgb 7.5 g/dL (14.0-18.0) L 07/05/22 04:51 Hct 20.5 % (42.0-52.0) L 07/05/22 04:51 MCV 88.4 fL (80.0-94.0) 07/05/22 04:51 MCH 32.3 pg (27.0-31.0) H 07/05/22 04:51 MCHC 36.6 g/dL (32.0-36.0) H 07/05/22 04:51 RDW 14.1 % (12.0-15.0) 07/05/22 04:51 Plt Count 76 10^3/uL (130-450) L 07/05/22 04:51 MPV 10.3 fL (7.4-11.4) 07/05/22 04:51 Neut # (Auto) Not Reportable 07/05/22 04:51 Lymph # (Auto) Not Reportable 07/05/22 04:51 Garrett # (Auto) Not Reportable 07/05/22 04:51 Eos # (Auto) Not Reportable 07/05/22 04:51 Baso # (Auto) Not Reportable 07/05/22 04:51 Absolute Nucleated RBC Not Reportable 07/05/22 04:51 Total Counted 100 07/05/22 04:51 Band Neuts % (Manual) 8 % (0-10) 07/05/22 04:51 Abnorm Lymph % (Manual) 0 % 07/05/22 04:51 Metamyelocytes % 3 % (-0) H 07/04/22 10:04 Nucleated RBC % Not Reportable 07/05/22 04:51 Neutrophils # (Manual) 11.7 10^3/uL (1.5-6.6) H 07/05/22 04:51 Lymphocytes # (Manual) 1.0 10^3/uL (1.5-3.5) L 07/05/22 04:51 Monocytes # (Manual) 1.0 10^3/uL (0.0-1.0) 07/05/22 04:51 Eosinophils # (Manual) 0.0 10^3/uL (0-0.7) 07/05/22 04:51 Basophils # (Manual) 0.0 10^3/uL (0-0.1) 07/05/22 04:51 Differential Comment MANUAL DIFFERENTIAL 07/05/22 04:51 Manual Slide Review Indicated 07/04/22 10:04 WBC Morphology 2+ TOXIC GRANULATION (NORMAL) 07/04/22 10:04 Platelet Estimate DECREASED (<130,000) (NORMAL) 07/05/22 04:51 Platelet Morphology NORMAL APPEARANCE (NORMAL) 07/04/22 10:04 RBC Morph Micro Appear NORMAL APPEARANCE (NORMAL) 07/05/22 04:51 VBG pH 7.439 (7.31-7.41) H 07/04/22 16:19 VBG pCO2 42.4 mmHg (41-51) 07/04/22 16:19 VBG pO2 25.9 mmHg (25-47) 07/04/22 16:19 VBG HCO3 28.1 mmol/L (23-28) H 07/04/22 16:19 VBG Total CO2 29.4 mmol/L (24-29) H 07/04/22 16:19 VBG O2 Saturation 52.9 % (60-80) L 07/04/22 16:19 VBG Base Excess 3.6 mmol/L (-2 - +2) H 07/04/22 16:19 Sodium 126 mmol/L (135-145) L 07/05/22 04:51 Potassium 3.3 mmol/L (3.5-5.0) L 07/05/22 04:51 Chloride 89 mmol/L (101-111) L 07/05/22 04:51 Carbon Dioxide 23 mmol/L (21-32) 07/05/22 04:51 Anion Gap 14.0 (6-13) H 07/05/22 04:51 BUN 91 mg/dL (6-20) H* 07/05/22 04:51 Creatinine 3.9 mg/dL (0.6-1.2) H 07/05/22 04:51 Estimated GFR (MDRD) 16 (>89) L 07/05/22 04:51 Glucose 87 mg/dL (70-100) 07/05/22 04:51 Calcium 7.2 mg/dL (8.5-10.3) L 07/05/22 04:51 Total Bilirubin 0.6 mg/dL (0.2-1.0) 07/04/22 10:35 AST 27 IU/L (10-42) 07/04/22 10:35 ALT 27 IU/L (10-60) 07/04/22 10:35 Alkaline Phosphatase 89 IU/L (42-121) 07/04/22 10:35 Total Protein 6.6 g/dL (6.7-8.2) L 07/04/22 10:35 Albumin 3.0 g/dL (3.2-5.5) L 07/04/22 10:35 Globulin 3.6 g/dL (2.1-4.2) 07/04/22 10:35 Albumin/Globulin Ratio 0.8 (1.0-2.2) L 07/04/22 10:35 Lipase 24 U/L (22-51) 07/04/22 10:35 Urine Color STRAW 07/04/22 14:52 Urine Clarity CLOUDY (CLEAR) 07/04/22 14:52 Urine pH 6.0 PH (5.0-7.5) 07/04/22 14:52 Ur Specific Yale <=1.005 (1.002-1.030) 07/04/22 14:52 Urine Protein 100 mg/dL (NEGATIVE) H 07/04/22 14:52 Urine Glucose (UA) NEGATIVE mg/dL (NEGATIVE) 07/04/22 14:52 Urine Ketones NEGATIVE mg/dL (NEGATIVE) 07/04/22 14:52 Urine Occult Blood LARGE (NEGATIVE) H 07/04/22 14:52 Urine Nitrite NEGATIVE (NEGATIVE) 07/04/22 14:52 Urine Bilirubin NEGATIVE (NEGATIVE) 07/04/22 14:52 Urine Urobilinogen 0.2 (NORMAL) E.U./dL (NORMAL) 07/04/22 14:52 Ur Leukocyte Esterase LARGE (NEGATIVE) H 07/04/22 14:52 Urine RBC 11-25 /HPF (0-5) H 07/04/22 14:52 Urine WBC >25 /HPF (0-3) H 07/04/22 14:52 Ur Squamous Epith Cells NONE SEEN (<= Few) 07/04/22 14:52 Urine Bacteria Moderate /HPF (None Seen) H 07/04/22 14:52 Ur Microscopic Review INDICATED 07/04/22 14:52 Urine Culture Comments INDICATED 07/04/22 14:52 SARS-CoV-2 (PCR) NOT DETECTED 07/04/22 16:29
[2022-07-05] MEDS: DEXTROSE 5%-0.9% NACL 1,000 ML IV SCH ×2 (12:22→22:32)
[2022-07-05] MEDS: MAG HYDROX/AL HYDROX/SIMETH 30 ML UDC PO PRN ×2 (12:27→19:38)
[2022-07-05] MEDS: CALCIUM CARBONATE CHEW 500 MG TABLET PO PRN (12:27)
[2022-07-06 05:10] LABS: BASOPHILS % (AUTO) 0.2 %; EOSINOPHILS % (AUTO) 0.5 %; HGB - HEMOGLOBIN 7.1 g/dL (14.0-18.0); LYMPHOCYTES % (AUTO) 5.9 %; MEAN CORPUSCULAR HEMOGLOBIN 31.7 pg (27.0-31.0); MEAN CORPUSCULAR VOLUME 87.9 fL (80.0-94.0); MEAN PLATELET VOLUME 9.8 fL (7.4-11.4); NEUTROPHILS % (AUTO) 82.7 %; PLT - PLATELET COUNT 116 10^3/uL (130-450); RED BLOOD COUNT 2.24 10^6/uL (4.70-6.10); RED CELL DISTRIBUTION WIDTH 14.4 % (12.0-15.0)
[2022-07-06 05:17] LABS: HCT - HEMATOCRIT 19.7 % (42.0-52.0)
[2022-07-06 05:18] LABS: ABNORMAL LYMPHS % (MANUAL) 0 %
[2022-07-06 05:41] LABS: CALCIUM 7.2 mg/dL (8.5-10.3); CREATININE 3.1 mg/dL (0.6-1.2); POTASSIUM 3.4 mmol/L (3.5-5.0)
[2022-07-06 05:44] LABS: BAND NEUTROPHILS % (MANUAL) 8 %; DIFFERENTIAL COMMENT MANUAL DIFFERENTIAL; LYMPHOCYTES # (MANUAL) 2.9 10^3/uL (1.5-3.5); LYMPHOCYTES % (MANUAL) 15 %; NEUTROPHILS # (MANUAL) 15.2 10^3/uL (1.5-6.6); PLATELET ESTIMATE, MANUAL DECREASED (<130,000) (NORMAL); RBC MORPHOLOGY (MULTIPLE) NORMAL APPEARANCE (NORMAL)
[2022-07-06] MEDS: cefTRIAXone 1 GM in SODIUM CHLORIDE 0.9% MINIBAG 100 ML IV SCH (07:48)
[2022-07-06] MEDS: ACETAMINOPHEN 325 MG TABLET PO PRN ×2 (07:48→22:32)
[2022-07-06] MEDS: HALOPERIDOL 5 MG/ML VIAL IVP PRN ×2 (07:49→17:22)
[2022-07-06] MEDS: DEXTROSE 5%-0.9% NACL 1,000 ML IV SCH ×3 (07:57→20:24)
--- NOTE | 2022-07-06 08:12 | PROVIDER PROGRESS NOTE ---
Assessment/Plan - Problem List (1) UTI (urinary tract infection) Assessment/Plan: He had an elevated white blood count of 13 and urinalysis was abnormal at admission, consistent with UTI. He did have recent urinary tract instrumentation a week before admission.The urine culture results are growing a gram neg osvaldo, not yet identified. He had no blood cx done at admission. He spiked a fever of 38.0 C at 2100 last night. His fever is 37.5 C this morning. His white blood count has increased from 13.1>> 13.6 yesterday to 19.0 today. This is probably why he feels worse today. Will order blood cx x2 to be drawn today Will broaden his antibiotic to cover Pseudomonas, so we will stop iv ceftriaxone and start iv cefepime today Follow CBC daily Await blood cx results (2) HIRO Conclusion/Plan: His usual creatinine is 1.0 (per our records), he was admitted with creatinine of 4.3 therefore he is Inpatient status. By starting IV fluids, creatinine has improved to 3.9 yesterday and 3.1 today Continue telemetry, in case of hyperkalemia Continue to administer IV fluids. Avoid nephrotoxins. Follow BMP daily With his history of bladder CA and his description of oliguria, we ordered CT abdomen/pelvis to look for obstructive uropathy, since CT imaging was not done i n the ED and it was abnormal (see #5). (3) Hyponatremia Conclusion/Plan: This is hypovolemic hyponatremia. Na has improved from 122 to 126 yesterday to 130 today Continue IV saline that was started in the ED, at a moderate rate. Follow serum sodium closely so it is not too rapidly corrected. Follow BMP daily (4) Anemia Conclusion/Plan: Despite being volume contracted, he presented very anemic with hemoglobin of 9.4. With volume replacement, his Hgb dropped to 7.5 yesterday and 7.1 today. He will need a blood transfusion if hemoglobin goes under 7, however, he told me at admission that he would refuse a blood transfusion, and only wants to "take supplements and let the blood build up" His iron panel shows extremely low iron stores. B12 and Folate are adequate Will give a dose of IV iron today. Will start oral iron supplements twice daily Follow CBC daily. (5) Hydronephrosis Conclusion/plan With his history of bladder CA and his description of oliguria, we ordered CT abdomen/pelvis to look for obstructive uropathy, since CT imaging was not done in the ED and it was abnormal, showing moder-severe Hydronephrosis with the obstruction at the bladder, not at the ureters. With this result, a Chávez was ordered and it has decompressed the bladder. Combination of Chávez plus IV fluids has helped with urine output and with improved creatinine. Continue with Chávez. I will try to reach his Urologist and/or Oncologist to discuss our findings and get recommendations (However today is Thursday, they may not be loss prevention consultant or available) (6) Bladder cancer Conclusion/Plan: He reports bladder cancer was diagnosed 1 year ago. He has completed 4 out of 5 planned chemotherapies. Since the last 1 he has been too anemic to get chemo again. His chemo doctor is Dr. Schreiber at [facility]. His urologist is Dr. Melvi Gama in [place]. And there was a third doctor who did the bladder cyst surgery1 week ago. With his history and his description of oliguria, will order CT abdomen pelvis to look for obstruction, which was not done in the ED, and it does show an obstructimng mass within the bladder, which is causing biklat hyronephrosis. Will also try to get detailed medical records from his bladder cancer doctor (7) Anorexia Conclusion/Plan: Improved. Today his RN reported he had an appetite and ate well, however after that he developed severe heartburn which is bringing back the hiccups. He requested TUMS or Mylanta, which was ordered. We are continuing IV fluids containing some calories, using D5NS Will request nutrition consult for possible PPN or TPN after a malnutrition risk screen is done. (However T[employer] are not here on the weekend and today is Thu) Will offer a soft diet (since he is edentulous) and encourage po fluid intake (8) Hiccups Conclusion/Plan: Improved. We started iv Haldol prn, and it is helping. Will continue as needed (9) Dehydration Conclusion/Plan: Improved. He no longer has dry mucosa and skin tenting diffusely. He is now 3 L positive in fluid balance since admission Continue with iv hydration as described above. Haldol did help to treat his hiccups which may also help him improve his oral intake - Current Meds Current Meds: Current Medications Generic Name Dose Route Start Last Admin Trade Name Freq PRN Reason Stop Dose Admin Acetaminophen 650 mg 07/04/22 16:05 07/06/22 07:48 Acetaminophen 325 Mg Tablet PO 650 mg Q4HR PRN Administration Pain 1 to 4, or Fever Al Hydroxide/Mg Hydroxide 30 ml 07/05/22 11:49 07/05/22 19:38 Mag Hydrox/Al Hydrox/Simeth 30 Ml Udc PO 30 ml Q4HR PRN Administration INDIGESTION Calcium Carbonate/Glycine 500 mg 07/05/22 11:48 07/05/22 12:27 Calcium Carbonate Chew 500 Mg Tablet PO 500 mg BID PRN Administration Heartburn Haloperidol 1 mg 07/04/22 19:58 07/06/22 07:49 Haloperidol 5 Mg/Ml Vial IVP 1 mg Q6H PRN Administration Hiccups Ondansetron HCl 4 mg 07/04/22 16:05 07/05/22 11:42 Ondansetron 4 Mg/2 Ml Vial IVP 4 mg Q6HR PRN Administration Nausea / Vomiting Sodium Chloride 10 ml 07/04/22 16:05 07/05/22 01:08 Sodium Chloride Flush 0.9% 10 Ml Syringe IVP 10 ml PRN PRN Administration NEEDED PER PROVIDER ORDERS Sodium Chloride 10 ml 07/04/22 17:00 07/05/22 23:48 Sodium Chloride Flush 0.9% 10 Ml Syringe IVP 10 ml 0100,0900,1700 SIMON Administration - Lab Result Fish Bone Diagrams: 07/06/22 04:57 07/06/22 04:57 - Additional Planning My Orders: My Active Orders 07/05/22 11:48 Calcium Carbonate [Tums] 500 mg PO BID PRN 07/05/22 11:49 Mag Hydrox/Al Hydrox/Simeth [Mylanta Plus] 30 ml PO Q4HR PRN 07/06/22 CULTURE, BLOOD #1 [RM] Stat CULTURE, BLOOD #2 [RM] Stat 07/06/22 05:00 MAGNESIUM [CHEM] Routine 07/06/22 08:03 Iron Dextran [Infed] 1,500 mg Sodium Chloride 0.9% [Normal Saline 0.9%] 500 ml IV ONCE 07/06/22 08:03 Dextrose 5%-0.9% NaCl [D5ns] 1,000 ml IV 83.33 mls/hr 07/06/22 08:06 Miscellaenous Nursing Order [RC] ONCE 07/06/22 09:00 Cefepime 2 gm Sodium Chloride 0.9% Minibag [Normal Saline 0.9% Minibag] 100 ml IV BID Potassium Chloride [Micro-K] 20 meq PO ONCE ONE 07/06/22 17:00 Ferrous Sulfate [Feosol] 325 mg PO BIDWM 07/07/22 05:00 BMP - BASIC METABOLIC PANEL [CHEM] DAILYLAB CBC - COMP BLD CT W/AUTO DIFF [HEME] DAILYLAB MAGNESIUM [CHEM] DAILYLAB PHOSPHORUS [CHEM] DAILYLAB 07/08/22 05:00 BMP - BASIC METABOLIC PANEL [CHEM] DAILYLAB CBC - COMP BLD CT W/AUTO DIFF [HEME] DAILYLAB Subjective - Subjective Patient Reports: Other (Patient has intractable hiccups again this morning and feels tired.) Objective Vital Signs: Vital Signs - 24 hr 07/05/22 07/05/22 07/05/22 12:10 15:15 21:00 Temperature 37.5 C 37.4 C 38.0 C H Heart Rate [ 89 67 84 Brachial] Respiratory 18 17 16 Rate Blood Pressure 131/56 H [Left Brachial artery] Blood Pressure 117/84 H 123/62 [Right Brachial artery] O2 Saturation 96 97 92 07/05/22 07/06/22 07/06/22 23:54 05:00 07:22 Temperature 37.2 C 37.9 C 37.5 C Heart Rate [ 79 72 82 Brachial] Respiratory 18 16 16 Rate Blood Pressure [Left Brachial artery] Blood Pressure 109/71 128/63 132/68 H [Right Brachial artery] O2 Saturation 95 94 95 Oxygen O2 Source Room air I&O (Last 24 Hrs): Intake and Output Totals x24h 07/04/22 07/05/22 07/06/22 23:59 23:59 23:59 Intake Total 3262.838 6019.667 1441.667 Output Total 400 2650 1100 Balance 298.726 8994.667 341.667 General: Alert, Mild distress (From hiccups) HEENT: Mucous membr. moist/pink Neck: Supple, No JVD Neuro: Alert, Non Focal Cardiovascular: Regular rate Respiratory: No respiratory distress Abdomen: Normal bowel sounds, Soft, No tenderness, Other (Hyperactive bowel sounds) Extremities: No clubbing, No edema - Results Results: Laboratory Results WBC 19.0 x10^3/uL (4.8-10.8) H 07/06/22 04:57 RBC 2.24 10^6/uL (4.70-6.10) L 07/06/22 04:57 Hgb 7.1 g/dL (14.0-18.0) L 07/06/22 04:57 Hct 19.7 % (42.0-52.0) L* 07/06/22 04:57 MCV 87.9 fL (80.0-94.0) 07/06/22 04:57 MCH 31.7 pg (27.0-31.0) H 07/06/22 04:57 MCHC 36.0 g/dL (32.0-36.0) 07/06/22 04:57 RDW 14.4 % (12.0-15.0) 07/06/22 04:57 Plt Count 116 10^3/uL (130-450) L 07/06/22 04:57 MPV 9.8 fL (7.4-11.4) 07/06/22 04:57 Neut # (Auto) Not Reportable 07/06/22 04:57 Lymph # (Auto) Not Reportable 07/06/22 04:57 [place] # (Auto) Not Reportable 07/06/22 04:57 Eos # (Auto) Not Reportable 07/06/22 04:57 Baso # (Auto) Not Reportable 07/06/22 04:57 Absolute Nucleated RBC Not Reportable 07/06/22 04:57 Total Counted 100 07/06/22 04:57 Band Neuts % (Manual) 8 % (0-10) 07/06/22 04:57 Abnorm Lymph % (Manual) 0 % 07/06/22 04:57 Metamyelocytes % 3 % (-0) H 07/04/22 10:04 Nucleated RBC % Not Reportable 07/06/22 04:57 Neutrophils # (Manual) 15.2 10^3/uL (1.5-6.6) H 07/06/22 04:57 Lymphocytes # (Manual) 2.9 10^3/uL (1.5-3.5) 07/06/22 04:57 Monocytes # (Manual) 1.0 10^3/uL (0.0-1.0) 07/06/22 04:57 Eosinophils # (Manual) 0.0 10^3/uL (0-0.7) 07/06/22 04:57 Basophils # (Manual) 0.0 10^3/uL (0-0.1) 07/06/22 04:57 Differential Comment MANUAL DIFFERENTIAL 07/06/22 04:57 Manual Slide Review Indicated 07/04/22 10:04 WBC Morphology 2+ TOXIC GRANULATION (NORMAL) 07/04/22 10:04 Platelet Estimate DECREASED (<130,000) (NORMAL) 07/06/22 04:57 Platelet Morphology NORMAL APPEARANCE (NORMAL) 07/04/22 10:04 RBC Morph Micro Appear NORMAL APPEARANCE (NORMAL) 07/06/22 04:57 VBG pH 7.439 (7.31-7.41) H 07/04/22 16:19 VBG pCO2 42.4 mmHg (41-51) 07/04/22 16:19 VBG pO2 25.9 mmHg (25-47) 07/04/22 16:19 VBG HCO3 28.1 mmol/L (23-28) H 07/04/22 16:19 VBG Total CO2 29.4 mmol/L (24-29) H 07/04/22 16:19 VBG O2 Saturation 52.9 % (60-80) L 07/04/22 16:19 VBG Base Excess 3.6 mmol/L (-2 - +2) H 07/04/22 16:19 Sodium 130 mmol/L (135-145) L 07/06/22 04:57 Potassium 3.4 mmol/L (3.5-5.0) L 07/06/22 04:57 Chloride 96 mmol/L (101-111) L 07/06/22 04:57 Carbon Dioxide 26 mmol/L (21-32) 07/06/22 04:57 Anion Gap 8.0 (6-13) 07/06/22 04:57 BUN 71 mg/dL (6-20) H 07/06/22 04:57 Creatinine 3.1 mg/dL (0.6-1.2) H 07/06/22 04:57 Estimated GFR (MDRD) 20 (>89) L 07/06/22 04:57 Glucose 137 mg/dL (70-100) H 07/06/22 04:57 Calcium 7.2 mg/dL (8.5-10.3) L 07/06/22 04:57 Iron 20 ug/dL (45-182) L 07/06/22 04:57 TIBC 153 ug/dL (250-450) L 07/06/22 04:57 % Saturation 13 % (20-50) L 07/06/22 04:57 Transferrin 109 mg/dL (180-329) L 07/06/22 04:57 Total Bilirubin 0.6 mg/dL (0.2-1.0) 07/04/22 10:35 AST 27 IU/L (10-42) 07/04/22 10:35 ALT 27 IU/L (10-60) 07/04/22 10:35 Alkaline Phosphatase 89 IU/L (42-121) 07/04/22 10:35 Total Protein 6.6 g/dL (6.7-8.2) L 07/04/22 10:35 Albumin 3.0 g/dL (3.2-5.5) L 07/04/22 10:35 Globulin 3.6 g/dL (2.1-4.2) 07/04/22 10:35 Albumin/Globulin Ratio 0.8 (1.0-2.2) L 07/04/22 10:35 Lipase 24 U/L (22-51) 07/04/22 10:35 Vitamin B12 1264 pg/mL (180-914) H 07/06/22 04:57 Folate 23.00 ng/mL (5.90 - >24.8) 07/06/22 04:57 Urine Color STRAW 07/04/22 14:52 Urine Clarity CLOUDY (CLEAR) 07/04/22 14:52 Urine pH 6.0 PH (5.0-7.5) 07/04/22 14:52 Ur Specific [place] <=1.005 (1.002-1.030) 07/04/22 14:52 Urine Protein 100 mg/dL (NEGATIVE) H 07/04/22 14:52 Urine Glucose (UA) NEGATIVE mg/dL (NEGATIVE) 07/04/22 14:52 Urine Ketones NEGATIVE mg/dL (NEGATIVE) 07/04/22 14:52 Urine Occult Blood LARGE (NEGATIVE) H 07/04/22 14:52 Urine Nitrite NEGATIVE (NEGATIVE) 07/04/22 14:52 Urine Bilirubin NEGATIVE (NEGATIVE) 07/04/22 14:52 Urine Urobilinogen 0.2 (NORMAL) E.U./dL (NORMAL) 07/04/22 14:52 Ur Leukocyte Esterase LARGE (NEGATIVE) H 07/04/22 14:52 Urine RBC 11-25 /HPF (0-5) H 07/04/22 14:52 Urine WBC >25 /HPF (0-3) H 07/04/22 14:52 Ur Squamous Epith Cells NONE SEEN (<= Few) 07/04/22 14:52 Urine Bacteria Moderate /HPF (None Seen) H 07/04/22 14:52 Ur Microscopic Review INDICATED 07/04/22 14:52 Urine Culture Comments INDICATED 07/04/22 14:52 SARS-CoV-2 (PCR) NOT DETECTED 07/04/22 16:29
[2022-07-06] MEDS ORDERED: POTASSIUM CHLORIDE 10 MEQ CAPSULE PO ONE (09:00)
[2022-07-06] MEDS ORDERED: IRON DEXTRAN 1,500 MG in SODIUM CHLORIDE 0.9% 500 ML IV ONE (10:00)
[2022-07-06] MEDS: CEFEPIME 2 GM in SODIUM CHLORIDE 0.9% MINIBAG 100 ML IV SCH ×2 (11:18→21:08)
[2022-07-06] MEDS: SODIUM CHLORIDE FLUSH 0.9% 10 ML SYRINGE IVP SCH ×2 (11:19→17:01)
[2022-07-06] MEDS: MAG HYDROX/AL HYDROX/SIMETH 30 ML UDC PO PRN ×2 (11:39→19:34)
[2022-07-06] MEDS: FERROUS SULFATE 325 MG TABLET PO SCH (17:00)
[2022-07-06] MEDS: CALCIUM CARBONATE CHEW 500 MG TABLET PO PRN (19:34)
[2022-07-07] MEDS: SODIUM CHLORIDE FLUSH 0.9% 10 ML SYRINGE IVP SCH ×3 (00:20→17:27)
[2022-07-07 06:00] LABS: BASOPHILS # (AUTO) 0.1 10^3/uL (0.0-0.1); BASOPHILS % (AUTO) 0.4 %; EOSINOPHILS # (AUTO) 0.1 10^3/uL (0.0-0.7); EOSINOPHILS % (AUTO) 0.6 %; LYMPHOCYTES # (AUTO) 1.6 10^3/uL (1.5-3.5); LYMPHOCYTES % (AUTO) 9.6 %; MEAN CORPUSCULAR HEMOGLOBIN 32.5 pg (27.0-31.0); MEAN CORPUSCULAR HGB CONC 35.2 g/dL (32.0-36.0); MEAN CORPUSCULAR VOLUME 92.3 fL (80.0-94.0); MEAN PLATELET VOLUME 9.9 fL (7.4-11.4); MONOCYTES # (AUTO) 1.4 10^3/uL (0.0-1.0); MONOCYTES % (AUTO) 8.8 %; NEUTROPHILS % (AUTO) 79.4 %; PLT - PLATELET COUNT 167 10^3/uL (130-450); RED BLOOD COUNT 2.09 10^6/uL (4.70-6.10); RED CELL DISTRIBUTION WIDTH 14.9 % (12.0-15.0); WHITE BLOOD COUNT 16.3 x10^3/uL (4.8-10.8)
[2022-07-07 06:11] LABS: HCT - HEMATOCRIT 19.3 % (42.0-52.0); HGB - HEMOGLOBIN 6.8 g/dL (14.0-18.0)
[2022-07-07 06:12] LABS: CALCIUM 7.4 mg/dL (8.5-10.3); CREATININE 2.5 mg/dL (0.6-1.2); PHOSPHORUS 2.4 mg/dL (2.5-4.6); POTASSIUM 3.4 mmol/L (3.5-5.0)
[2022-07-07] MEDS: ACETAMINOPHEN 325 MG TABLET PO PRN (06:26)
[2022-07-07] MEDS: HALOPERIDOL 5 MG/ML VIAL IVP PRN ×2 (06:33→13:48)
[2022-07-07] MEDS ORDERED: DEXTROSE 5%-0.9% NACL 1,000 ML IV SCH (07:22)
--- NOTE | 2022-07-07 07:46 | PROVIDER PROGRESS NOTE ---
Assessment/Plan - Problem List (1) E. coli UTI Assessment/Plan: He presented with an elevated white blood count of 13 and urinalysis was abnormal at admission, consistent with UTI. He did also have recent urinary tract instrumentation (bladder cyst removed surgically a week before this admission). He was started on Ceftriaxone empirically. Despite this, he spiked a fever on his 3rd day and his WBC was increasing from 13.1>> 13.6>> 19.0. We anthony blood cx on 07/06 and we broadened his antibiotic coverage, cefepime was started yesterday 07/06. The (+) urine culture has been identified as a chance-sensitive E coli . He had no blood cx done at admission. His WBC has finally decreased today. Plan to continue the cefepime in case there is bacteremia growing a different organism Follow CBC daily Await blood cx results Plan is to treat with antibx for at least 14 days, for good prostate penetration (2) HIRO Conclusion/Plan: His usual creatinine is 1.0 (per our records), he was admitted with creatinine of 4.3. By starting IV fluids, creatinine has improved slowly daily. In looking for a cause of HIRO, besides poor po intake for 1 week, and with his history of bladder CA and his description of oliguria, we ordered CT abdomen/pelvis to look for obstructive uropathy, since CT imaging was not done in the ED. The CT was abnormal (see #5). Continue telemetry, in case of hyperkalemia We started to taper IV fluids, today TKO and will stop tomorrow. Avoid nephrotoxins. Follow BMP daily (3) Hyponatremia Conclusion/Plan: This is hypovolemic hyponatremia. Na has improved from 122>>126>> 130>> 132 today We started to taper IV saline yesterday, today TKO, and will stop tomorrow. Following serum sodium closely so it is not too rapidly corrected. Follow BMP daily (4) Anemia Conclusion/Plan: Despite being volume contracted, he presented very anemic with hemoglobin of 9.4. With iv fluid volume replacement, his Hgb dropped to 7.5>> 7.1>> 6.8 today. The pt told me at admission that he would refuse a blood transfusion, and only wants to "take supplements and let the blood build up" His iron panel shows extremely low iron stores. B12 and Folate are adequate We give one dose of IV iron yesterday 07/06. We also start oral iron supplements twice daily Following CBC daily. I spoke to his Oncologist, Dr. Houston Licea today, who did recommend that he get a blood transfusion, or to give a dose of Erythropoietin (based on his creatinine clearance) This was all shared with the patient who said today that he would agree to a blood transfusion. He still endorses weakness, likely worse from his severe anemia. Therefore, in preparation for discharge soon, will order PT evaluation today (5) Hydronephrosis due to obstruction of bladder Conclusion/plan With his history of bladder CA and his description of oliguria, we ordered CT abdomen/pelvis to look for obstructive uropathy, and it was abnormal, showing moder-severe hydronephrosis with the obstruction at the bladder, not at the ureters. With this result, a Chávez was ordered and it has decompressed his urinary tract Today I called his Oncologist Dr Houston Licea to discuss these findings and get recommendations. Dr. Licea reported that this bladder mass is known. He agreed with Chávez placement and recommends continuing the Chávez at discharge and then follow-up with his Urologist, Dr. Melvi Gama after this discharge. I told the patient all of this today and he understood and says he has an appointment this Th with Dr Licea. He will need Chávez education, this was communicated to his nurse. (6) Bladder cancer Conclusion/Plan: Pt has bladder cancer diagnosed 1 year ago. He has completed 4 out of 5 planned chemotherapies. Since the last chemo he has been too anemic to get chemo again. His chemo doctor is Dr. Schreiber at [facility] who I updated today. His urologist is Dr. Melvi Gama in [place]. And there was a third doctor who did the bladder cyst surgery [address] abdomen/pelvis does show an obstructing mass within the bladder, which is likely the cause of bilat hyronephrosis. Today I spoke to his Oncologist, Dr Houston Licea who reported that this bladder mass is known. He agreed with Chávez placement and recommended continuing the Chávez at discharge and then follow-up soon with his Urologist, Dr. Melvi Gama and with him after discharge. I told the patient all of this today and he understood and says he has an appointment this Thurs with Dr Licea. (7) Anorexia Conclusion/Plan: Improved. Etiology unclear. We ordered a soft diet (since he is edentulous) and encouraging po fluid intake Since admission his RN reported he had an appetite and ate well, however after that he developed heartburn which is bringing back the hiccups. He requested TUMS or Mylanta, which was ordered. We are continuing IV fluids Will request nutrition consult for a malnutrition risk screen. He presented very weak. In preparation for discharge soon, will order PT evaluation today (8) Hiccups Conclusion/Plan: Improved. We started iv Haldol prn, and it is helping. Will continue as needed. He may need a new prescription for oral Haldol at the time of discharge. (9) Dehydration Conclusion/Plan: Improved. He no longer has dry mucosa and skin tenting diffusely. He is now several L positive in fluid balance since admission Continue with iv hydration as described above. Haldol did help to treat his hiccups which may also help him improve his oral intake - Current Meds Current Meds: Current Medications Generic Name Dose Route Start Last Admin Trade Name Halq PRN Reason Stop Dose Admin Acetaminophen 650 mg 07/04/22 16:05 07/07/22 06:26 Acetaminophen 325 Mg Tablet PO 650 mg Q4HR PRN Administration Pain 1 to 4, or Fever Al Hydroxide/Mg Hydroxide 30 ml 07/05/22 11:49 07/06/22 19:34 Mag Hydrox/Al Hydrox/Simeth 30 Ml Udc PO 30 ml Q4HR PRN Administration INDIGESTION Calcium Carbonate/Glycine 500 mg 07/05/22 11:48 07/06/22 19:34 Calcium Carbonate Chew 500 Mg Tablet PO 500 mg BID PRN Administration Heartburn Ferrous Sulfate 325 mg 07/06/22 17:00 07/06/22 17:00 Ferrous Sulfate 325 Mg Tablet PO 325 mg BIDWM SIMON Administration Haloperidol 1 mg 07/04/22 19:58 07/07/22 06:33 Haloperidol 5 Mg/Ml Vial IVP 1 mg Q6H PRN Administration Hiccups Cefepime HCl 2 gm/ Sodium 100 mls @ 200 mls/hr 07/06/22 09:00 07/06/22 21:38 Chloride IV Infused BID SIMON Infusion Ondansetron HCl 4 mg 07/04/22 16:05 07/05/22 11:42 Ondansetron 4 Mg/2 Ml Vial IVP 4 mg Q6HR PRN Administration Nausea / Vomiting Sodium Chloride 10 ml 07/04/22 16:05 07/05/22 01:08 Sodium Chloride Flush 0.9% 10 Ml Syringe IVP 10 ml PRN PRN Administration NEEDED PER PROVIDER ORDERS Sodium Chloride 10 ml 07/04/22 17:00 07/07/22 06:35 Sodium Chloride Flush 0.9% 10 Ml Syringe IVP 10 ml 0100,0900,1700 SIMON Administration - Lab Result Fish Bone Diagrams: 07/07/22 05:30 07/07/22 05:30 - Additional Planning My Orders: My Active Orders 07/06/22 08:06 Miscellaenous Nursing Order [RC] ONCE 07/06/22 08:26 CULTURE, BLOOD #1 [RM] Stat 07/06/22 08:27 CULTURE, BLOOD #2 [RM] Stat 07/06/22 09:00 Cefepime 2 gm Sodium Chloride 0.9% Minibag [Normal Saline 0.9% Minibag] 100 ml IV BID 07/06/22 17:00 Ferrous Sulfate [Feosol] 325 mg PO BIDWM 07/07/22 Evaluate and Treat PT [PT] Routine 07/07/22 07:22 Dextrose 5%-0.9% NaCl [D5ns] 1,000 ml IV TKO 07/08/22 05:00 BMP - BASIC METABOLIC PANEL [CHEM] DAILYLAB CBC - COMP BLD CT W/AUTO DIFF [HEME] DAILYLAB Subjective - Subjective Patient Reports: Other (Has chronic hiccups again, every 5 seconds. Appetite is fairly good.) Objective Vital Signs: Vital Signs - 24 hr 07/06/22 07/06/22 07/06/22 12:22 16:10 21:00 Temperature 37.3 C 37.4 C 37.2 C Heart Rate [ 69 80 84 Brachial] Respiratory 16 17 16 Rate Blood Pressure 124/59 L [Left Brachial artery] Blood Pressure 127/59 L 132/60 H [Right Brachial artery] O2 Saturation 95 96 93 07/07/22 07/07/22 07/07/22 00:08 05:42 06:30 Temperature 37.0 C 37.3 C Heart Rate [ 92 77 85 Brachial] Respiratory 18 18 Rate Blood Pressure [Left Brachial artery] Blood Pressure 143/71 H 134/63 H 148/77 H [Right Brachial artery] O2 Saturation 95 96 Oxygen O2 Source Room air I&O (Last 24 Hrs): Intake and Output Totals x24h 07/05/22 07/06/22 07/07/22 23:59 23:59 23:59 Intake Total 5312.667 4411.667 Output Total 2650 3900 1875 Balance 2662.667 511.667 -1875 General: Alert, Oriented x3 HEENT: Mucous membr. moist/pink, Other (edentulous) Neck: Supple, No JVD Neuro: Alert, Non Focal Cardiovascular: Regular rate, No murmurs Respiratory: No respiratory distress, Breath sounds nml Abdomen: Normal bowel sounds, Soft Genitourinary: Other (Has Chávez in place) Extremities: No clubbing, No edema - Results Results: Laboratory Results WBC 16.3 x10^3/uL (4.8-10.8) H 07/07/22 05:30 RBC 2.09 10^6/uL (4.70-6.10) L 07/07/22 05:30 Hgb 6.8 g/dL (14.0-18.0) L* 07/07/22 05:30 Hct 19.3 % (42.0-52.0) L* 07/07/22 05:30 MCV 92.3 fL (80.0-94.0) 07/07/22 05:30 MCH 32.5 pg (27.0-31.0) H 07/07/22 05:30 MCHC 35.2 g/dL (32.0-36.0) 07/07/22 05:30 RDW 14.9 % (12.0-15.0) 07/07/22 05:30 Plt Count 167 10^3/uL (130-450) 07/07/22 05:30 MPV 9.9 fL (7.4-11.4) 07/07/22 05:30 Neut # (Auto) 13.0 10^3/uL (1.5-6.6) H 07/07/22 05:30 Lymph # (Auto) 1.6 10^3/uL (1.5-3.5) 07/07/22 05:30 [place] # (Auto) 1.4 10^3/uL (0.0-1.0) H 07/07/22 05:30 Eos # (Auto) 0.1 10^3/uL (0.0-0.7) 07/07/22 05:30 Baso # (Auto) 0.1 10^3/uL (0.0-0.1) 07/07/22 05:30 Absolute Nucleated RBC 0.00 x10^3/uL 07/07/22 05:30 Total Counted 100 07/06/22 04:57 Band Neuts % (Manual) 8 % (0-10) 07/06/22 04:57 Abnorm Lymph % (Manual) 0 % 07/06/22 04:57 Metamyelocytes % 3 % (-0) H 07/04/22 10:04 Nucleated RBC % 0.0 /100WBC 07/07/22 05:30 Neutrophils # (Manual) 15.2 10^3/uL (1.5-6.6) H 07/06/22 04:57 Lymphocytes # (Manual) 2.9 10^3/uL (1.5-3.5) 07/06/22 04:57 Monocytes # (Manual) 1.0 10^3/uL (0.0-1.0) 07/06/22 04:57 Eosinophils # (Manual) 0.0 10^3/uL (0-0.7) 07/06/22 04:57 Basophils # (Manual) 0.0 10^3/uL (0-0.1) 07/06/22 04:57 Differential Comment MANUAL DIFFERENTIAL 07/06/22 04:57 Manual Slide Review Indicated 07/04/22 10:04 WBC Morphology 2+ TOXIC GRANULATION (NORMAL) 07/04/22 10:04 Platelet Estimate DECREASED (<130,000) (NORMAL) 07/06/22 04:57 Platelet Morphology NORMAL APPEARANCE (NORMAL) 07/04/22 10:04 RBC Morph Micro Appear NORMAL APPEARANCE (NORMAL) 07/06/22 04:57 VBG pH 7.439 (7.31-7.41) H 07/04/22 16:19 VBG pCO2 42.4 mmHg (41-51) 07/04/22 16:19 VBG pO2 25.9 mmHg (25-47) 07/04/22 16:19 VBG HCO3 28.1 mmol/L (23-28) H 07/04/22 16:19 VBG Total CO2 29.4 mmol/L (24-29) H 07/04/22 16:19 VBG O2 Saturation 52.9 % (60-80) L 07/04/22 16:19 VBG Base Excess 3.6 mmol/L (-2 - +2) H 07/04/22 16:19 Sodium 132 mmol/L (135-145) L 07/07/22 05:30 Potassium 3.4 mmol/L (3.5-5.0) L 07/07/22 05:30 Chloride 100 mmol/L (101-111) L 07/07/22 05:30 Carbon Dioxide 25 mmol/L (21-32) 07/07/22 05:30 Anion Gap 7.0 (6-13) 07/07/22 05:30 BUN 49 mg/dL (6-20) H 07/07/22 05:30 Creatinine 2.5 mg/dL (0.6-1.2) H 07/07/22 05:30 Estimated GFR (MDRD) 26 (>89) L 07/07/22 05:30 Glucose 118 mg/dL (70-100) H 07/07/22 05:30 Calcium 7.4 mg/dL (8.5-10.3) L 07/07/22 05:30 Phosphorus 2.4 mg/dL (2.5-4.6) L 07/07/22 05:30 Magnesium 2.0 mg/dL (1.7-2.8) 07/07/22 05:30 Iron 20 ug/dL (45-182) L 07/06/22 04:57 TIBC 153 ug/dL (250-450) L 07/06/22 04:57 % Saturation 13 % (20-50) L 07/06/22 04:57 Transferrin 109 mg/dL (180-329) L 07/06/22 04:57 Total Bilirubin 0.6 mg/dL (0.2-1.0) 07/04/22 10:35 AST 27 IU/L (10-42) 07/04/22 10:35 ALT 27 IU/L (10-60) 07/04/22 10:35 Alkaline Phosphatase 89 IU/L (42-121) 07/04/22 10:35 Total Protein 6.6 g/dL (6.7-8.2) L 07/04/22 10:35 Albumin 3.0 g/dL (3.2-5.5) L 07/04/22 10:35 Globulin 3.6 g/dL (2.1-4.2) 07/04/22 10:35 Albumin/Globulin Ratio 0.8 (1.0-2.2) L 07/04/22 10:35 Lipase 24 U/L (22-51) 07/04/22 10:35 Vitamin B12 1264 pg/mL (180-914) H 07/06/22 04:57 Folate 23.00 ng/mL (5.90 - >24.8) 07/06/22 04:57 Urine Color STRAW 07/04/22 14:52 Urine Clarity CLOUDY (CLEAR) 07/04/22 14:52 Urine pH 6.0 PH (5.0-7.5) 07/04/22 14:52 Ur Specific [place] <=1.005 (1.002-1.030) 07/04/22 14:52 Urine Protein 100 mg/dL (NEGATIVE) H 07/04/22 14:52 Urine Glucose (UA) NEGATIVE mg/dL (NEGATIVE) 07/04/22 14:52 Urine Ketones NEGATIVE mg/dL (NEGATIVE) 07/04/22 14:52 Urine Occult Blood LARGE (NEGATIVE) H 07/04/22 14:52 Urine Nitrite NEGATIVE (NEGATIVE) 07/04/22 14:52 Urine Bilirubin NEGATIVE (NEGATIVE) 07/04/22 14:52 Urine Urobilinogen 0.2 (NORMAL) E.U./dL (NORMAL) 07/04/22 14:52 Ur Leukocyte Esterase LARGE (NEGATIVE) H 07/04/22 14:52 Urine RBC 11-25 /HPF (0-5) H 07/04/22 14:52 Urine WBC >25 /HPF (0-3) H 07/04/22 14:52 Ur Squamous Epith Cells NONE SEEN (<= Few) 07/04/22 14:52 Urine Bacteria Moderate /HPF (None Seen) H 07/04/22 14:52 Ur Microscopic Review INDICATED 07/04/22 14:52 Urine Culture Comments INDICATED 07/04/22 14:52 SARS-CoV-2 (PCR) NOT DETECTED 07/04/22 16:29
[2022-07-07] MEDS: CEFEPIME 2 GM in SODIUM CHLORIDE 0.9% MINIBAG 100 ML IV SCH ×2 (08:00→20:47)
[2022-07-07] MEDS: FERROUS SULFATE 325 MG TABLET PO SCH ×2 (08:00→17:27)
[2022-07-07] MEDS: CALCIUM CARBONATE CHEW 500 MG TABLET PO PRN (15:52)
[2022-07-07] MEDS: MAG HYDROX/AL HYDROX/SIMETH 30 ML UDC PO PRN ×2 (15:54→22:51)
[2022-07-08] MEDS: SODIUM CHLORIDE FLUSH 0.9% 10 ML SYRINGE IVP SCH ×2 (00:17→10:06)
[2022-07-08] MEDS: ACETAMINOPHEN 325 MG TABLET PO PRN ×2 (00:52→06:35)
[2022-07-08 04:47] LABS: BASOPHILS # (AUTO) 0.1 10^3/uL (0.0-0.1); BASOPHILS % (AUTO) 0.3 %; EOSINOPHILS # (AUTO) 0.1 10^3/uL (0.0-0.7); EOSINOPHILS % (AUTO) 0.8 %; HCT - HEMATOCRIT 23.6 % (42.0-52.0); HGB - HEMOGLOBIN 7.9 g/dL (14.0-18.0); LYMPHOCYTES # (AUTO) 1.6 10^3/uL (1.5-3.5); LYMPHOCYTES % (AUTO) 10.3 %; MEAN CORPUSCULAR HEMOGLOBIN 30.9 pg (27.0-31.0); MEAN CORPUSCULAR HGB CONC 33.5 g/dL (32.0-36.0); MEAN CORPUSCULAR VOLUME 92.2 fL (80.0-94.0); MEAN PLATELET VOLUME 9.8 fL (7.4-11.4); MONOCYTES # (AUTO) 1.4 10^3/uL (0.0-1.0); MONOCYTES % (AUTO) 8.8 %; NEUTROPHILS % (AUTO) 78.2 %; PLT - PLATELET COUNT 194 10^3/uL (130-450); RED BLOOD COUNT 2.56 10^6/uL (4.70-6.10); RED CELL DISTRIBUTION WIDTH 15.4 % (12.0-15.0); WHITE BLOOD COUNT 15.4 x10^3/uL (4.8-10.8)
[2022-07-08 04:55] LABS: CALCIUM 7.9 mg/dL (8.5-10.3); CREATININE 2.2 mg/dL (0.6-1.2); POTASSIUM 3.6 mmol/L (3.5-5.0)
--- NOTE | 2022-07-08 10:01 | Discharge Plan ---
Discharge Plan Problem Reviewed?: Yes Disposition: Home, Self Care Condition: Stable Prescriptions: Ferrous Sulfate [Feosol] 325 mg PO BIDWM #30 tab levoFLOXacin [Levaquin] 750 mg PO Q48H #7 tab chlorproMAZINE [Thorazine] 25 mg PO BID PRN #60 tablet PRN Reason: Hiccups Diet: Regular Activity Restrictions: No Restrictions Shower Restrictions: No Driving Restrictions: No Instruction Topics: Catheter Indwelling Urinary Dc, Leg Bag Care Dc Health Concerns: You came to the emergency room because you were very very weak and having uncontrollable hiccups. You already have a history of bladder cancer and I finished 4 cycles. We have found you to have: 1. Severe kidney failure. Both of the tubes that empty your kidneys and go into your bladder were not able to empty and urine was backing up into your bloodstream. We think the blockage was caused by the bladder cancer that is growing and blocking your kidneys from emptying 2. Urinary tract infection with a bacteria called E. coli 3. Severe anemia that is iron deficient 4. Hiccups that were caused by the urine blocked up in your kidneys 5. Dehydration 6. Salt and potassium abnormalities because of your kidney failure A lot of this is improved once we started you on antibiotics, intravenous fluids, and you were able to keep food down. Plan of Treatment: 1. You will need a total of 2 weeks of antibiotics. We are sending you home on a antibiotic that you will take every other day. Do not take it daily. You cannot take it daily because your kidneys are not able to filter and clear it out of your bloodstream. You still have a few more days to go before your kidneys are normal. 2. Please see your urologist, Dr. Erickson, as soon as possible. She will need to evaluate you for the tumor that is blocking your kidneys from emptying into your bladder. 3. Please contact your cancer doctors office. They may choose to delay giving you chemotherapy this week on the basis of your kidney function and anemia. You have an appointment this with Dr Licea. 4. Because of your iron deficiency anemia, we are starting you on an iron tablet once a day. Ask your doctor if you need to increase it to twice a day. 5. Your cancer doctor is asked us to keep the Chávez catheter in your bladder to help drain your urine so you do not have kidney blockage again. Make sure you see either the cancer specialist or the surgeon, Dr. Erickson, to find out when that Chávez catheter would be removed. 6. On the day of discharge, your doctor asked that you and your brother discuss the future. Have plan B, plan C, plan D. + In case you do not do well and get worse with your health, where to you plan to live if you need 24/7 care? +If you are now completely disabled and can no longer get out of bed do you still want everything done to keep you alive? If you are in bed and someone has to change your diaper, bathe you, or hand feed you, who will be taking care of you?These are questions we ask all patients to think about when they have a serious illness. You may get better down the road and then your plans do not have to be implemented, but is always better to have some conversation about this and have a few plans in place. +Another question we asked was who is your DURABLE POWER OF SLAB GRINDER and power of scrap sorter? Please assign those in advance of you getting very very sick. They will be the person that speaks for you when you get ill. Forms will have to be filled out to make that happen. Care Goals: To stay at home for as long as possible and control your cancer. Assessment: At discharge the patient's twin brother was at the bedside. Endorses that they will follow through. And the family will have conversations about advance care planning. No Smoking: If you smoke, Please STOP! Call for help. Follow-up with: Melvi Erickson MD [Physician No Access] -
[2022-07-08] MEDS: FERROUS SULFATE 325 MG TABLET PO SCH (10:06)
[2022-07-08] MEDS: CALCIUM CARBONATE CHEW 500 MG TABLET PO PRN (10:58)
[2022-07-08] MEDS: MAG HYDROX/AL HYDROX/SIMETH 30 ML UDC PO PRN (10:59)
[2022-07-08] MEDS ORDERED: levoFLOXacin 250 MG TABLET PO SCH (12:00)
[2022-07-08 12:29] VITALS: BP 132/67
--- NOTE | 2022-07-08 18:20 | DISCHARGE SUMMARY ---
Discharge Summary Admit Date: 07/04/22 Discharge Date: 07/08/22 Discharging Provider: Gege [place] MD Primary Care Provider: Melvi Erickson Code Status: Attempt Resuscitation Condition at Discharge: Stable Discharge Disposition: 01 Home, Self Care - DIAGNOSES Discharge Diagnoses with Status of Each Condition: 1. E. coli UTI Secondary to postoperative urinary tract infection 2. Hydronephrosis due to obstruction of bladder 3. Bladder cancer 4. Hiccups 5. Hyponatremia 6. Acute kidney injury 7. Anemia, iron deficiency 8. Anorexia 9. Dehydration - HPI History of Present Illness: This is a 67-year-old male who has a history of bladder cancer dx 1 year ago and is on chemotherapy at [facility] with Dr Licea. He has had about 4 out of 5 planned chemotherapy courses. Each chemo treatment drops his "blood cell counts" and he has not had the last course of chemo because his blood cell counts have not adequately risen. He states he does not want a blood transfusion, he only wants to take supplements, like Zinc, to "build his blood back up". He underwent removal of a cyst of the bladder a week ago by a different doctor. He has had anorexia and weakness over the past 1 week and complains of intractable hiccups also feeling more weak today, and almost no urine output for many days, therefore he presented on his own to the ED. For the hiccups all he has tried is holding his breath and hyperventilating. In the ED, he was found to have BUN/creat of 91/4.0 (his usual creatinine is 1.0). He also has an abnormal urinalysis with white blood cells of 25, and many bacteria seen. A chest x-ray was done that was WNL. No abdomine/pelvis CT was done. The patient started to receive IV fluids and iv Ceftriaxone in the ED, and the ED provider reached out to the Hospitalist team to the have the patient admitted for HIRO caused by volume depletion. I discussed his CODE BLUE wishes and he wants to be a Full Code. - Past Medical History : reports: Other (Bladder cancer) - Past Surgical History /EPIC CUPID ANALYST: reports: Other (Bladder cyst removed 1 week ago) - CONSULTS | PROCEDURES Consultations: Case discussed with oncology, Dr. Houston Licea Procedures: 1. Chest x-ray without acute cardiopulmonary abnormality 2. Abdomen/pelvis CT a partially distended bladder. Abnormal bladder wall thickening at the right bladder. Abnormal contour of the right bladder. Wound at left groin. Bilateral moderate to severe hydronephrosis that is new. Bilateral hydroureter and ureters are distended to the level of the urinary bladder. 3. Blood cultures negative after 2 days 4. Urine culture with E. coli sensitive to all on antibiogram - HOSPITAL COURSE Hospital Course: He we felt that he had a UTI secondary to recent instrumentation when he had his bladder cyst removal. He responded well to IV ceftriaxone. Acute kidney injury started at 4.3 creatinine. His usual creatinine is 1.0. By the time of discharge his creatinine was 2.2. Hyponatremia gradually improved with normal saline. Hemoglobin eventually dropped to 6.8 once he was hydrated. He initially refused blood transfusion. And then he finally agreed to 1. He was noted to have hydronephrosis of the bladder on CT and a Chávez catheter was placed. He was discharged with a Chávez catheter in. His brother and he both states that he wants to fight the bladder cancer. We will continue to follow through with the urologist for treatment. He has a hard time eating hard food and we adjusted his diet on the basis of lack of teeth. Hiccups were better with Haldol and we discharged him with Thorazine. He had dry mucous membranes on admission with skin tenting, and that was improved at discharge. At discharge temperature was 36.9. Heart rate 79. Blood pressure 132/67. Respirations 20. 98% on room air. Both of his brothers were in the room when shayne wright discussed what he needed to do at discharge. We did discuss what would happen if he needed to be taking care of and was now bedbound. Both brother said that they would take turns taking care of him. He had no respiratory distress. Abdomen was soft nontender. Urine was draining from the Chávez. He was able to sit up and walk in the room. Nursing taught him how to use the leg bag. At the time of discharge, pharmacy approached me and let me know that 750 mg on a daily basis is probably not indicated because of his creatinine. They have changed to 750 mg to every other day. We clarified this the day after discharge with the patient and with the pharmacy. Greater than 30 minutes was spent coordinating discharge - ALLERGIES Allergies/Adverse Reactions: Allergies Allergy/AdvReac Type Severity Reaction Status Date / Time No Known Drug Allergies Allergy Verified 07/04/22 09:35 - MEDICATIONS Home Medications: Ambulatory Orders Medication Instructions Recorded Confirmed Calcium Carbonate [Tums (Calcium 500 mg PO BID PRN tab 07/08/22 Carbonate 500mg)] Ferrous Sulfate [Feosol] 325 mg PO BIDWM #30 tab 07/08/22 chlorproMAZINE [Thorazine] 25 mg PO BID PRN #60 tablet 07/08/22 levoFLOXacin [Levaquin] 750 mg PO Q48H #7 tab 07/08/22 - LABS Result Diagrams: 07/08/22 04:23 07/08/22 04:23
== END 2022-07-08 12:41 | disposition home or self-care (01) | DRG 683 ==
LOC: ED 09:15 → MS2 16:05
PROVIDERS: ADMIT Internal Medicine; ATTEND Specialist
DX: N17.9 Acute kidney failure, unspecified (principal); E87.1 Hypo-osmolality and hyponatremia; N39.0 Urinary tract infection, site not specified; N99.89 Other postprocedural complications and disorders of genitourinary system; N13.1 Hydronephrosis with ureteral stricture, not elsewhere classified; Y83.8 Other surgical procedures as the cause of abnormal reaction of the patient, or of later complication, without mention of misadventure at the time of the procedure; B96.20 Unspecified Escherichia coli [E. coli] as the cause of diseases classified elsewhere; C67.9 Malignant neoplasm of bladder, unspecified; R06.6 Hiccough; D50.9 Iron deficiency anemia, unspecified; E86.0 Dehydration; R63.0 Anorexia; K08.109 Complete loss of teeth, unspecified cause, unspecified class; Z20.822 Contact with and (suspected) exposure to COVID-19; Z72.0 Tobacco use; Z80.1 Family history of malignant neoplasm of trachea, bronchus and lung; Z80.52 Family history of malignant neoplasm of bladder; Z92.21 Personal history of antineoplastic chemotherapy
CPT/HCPCS: 36415; 71045; 74176; 80048; 80053; 81001; 82607; 82746; 82803; 83540; 83690; 83735; 84100; 84466; 85025; 86850; 86900; 86901; 86920; 87040; 87077; 87086; 87181; 87635; 96360; 97161; 99283; 99285; A9270; J1750; P9016; 81003

== ENCOUNTER 2022-10-15 08:00 | Outpatient (CLI) | payer MEDICARE, MEDICAID ==
[2022-10-15 12:39] LABS: ALBUMIN 4.1 g/dL (3.2-5.5); BILIRUBIN,TOTAL 0.5 mg/dL (0.2-1.0); CALCIUM 9.1 mg/dL (8.5-10.3); CREATININE 1.5 mg/dL (0.6-1.2); POTASSIUM 4.6 mmol/L (3.5-5.0); TOTAL PROTEIN 8.3 g/dL (6.7-8.2)
[2022-10-15 12:51] LABS: BASOPHILS # (AUTO) 0.1 10^3/uL (0.0-0.1); BASOPHILS % (AUTO) 0.7 %; EOSINOPHILS # (AUTO) 0.2 10^3/uL (0.0-0.7); EOSINOPHILS % (AUTO) 1.6 %; HCT - HEMATOCRIT 32.4 % (42.0-52.0); HGB - HEMOGLOBIN 10.3 g/dL (14.0-18.0); LYMPHOCYTES # (AUTO) 1.9 10^3/uL (1.5-3.5); LYMPHOCYTES % (AUTO) 16.1 %; MEAN CORPUSCULAR HEMOGLOBIN 30.4 pg (27.0-31.0); MEAN CORPUSCULAR HGB CONC 31.8 g/dL (32.0-36.0); MEAN CORPUSCULAR VOLUME 95.6 fL (80.0-94.0); MEAN PLATELET VOLUME 8.4 fL (7.4-11.4); MONOCYTES # (AUTO) 0.9 10^3/uL (0.0-1.0); MONOCYTES % (AUTO) 7.3 %; NEUTROPHILS # (AUTO) 8.6 10^3/uL (1.5-6.6); NEUTROPHILS % (AUTO) 73.8 %; PLT - PLATELET COUNT 339 10^3/uL (130-450); RED BLOOD COUNT 3.39 10^6/uL (4.70-6.10); RED CELL DISTRIBUTION WIDTH 13.3 % (12.0-15.0); WHITE BLOOD COUNT 11.6 x10^3/uL (4.8-10.8)
[2022-10-15 13:49] LABS: BILIRUBIN,URINE NEGATIVE (NEGATIVE); GLUCOSE, URINE (UA) NEGATIVE (NEGATIVE); KETONES,URINE (UA) NEGATIVE (NEGATIVE); LEUKOCYTE ESTERASE, URINE LARGE (NEGATIVE); NITRITE,URINE POSITIVE (NEGATIVE); OCCULT BLOOD,URINE NEGATIVE (NEGATIVE); PROTEIN,URINE TRACE mg/dL (NEGATIVE); UROBILINOGEN,URINE 0.2 (NORMAL) E.U./dL (NORMAL)
[2022-10-15 14:09] LABS: BACTERIA,URINE Moderate /HPF (None Seen); CLARITY,URINE CLOUDY (CLEAR); RBC,URINE 0-5 /HPF (0-5); SQUAMOUS EPITHELIAL CELL,UR NONE SEEN (<= Few); WBC CLUMPS,URINE PRESENT; WBC,URINE >25 /HPF (0-3)
== END 2022-10-15 23:59 | disposition home or self-care (01) ==
LOC: LAB.N 08:00
PROVIDERS: ATTEND Nurse Practitioner
DX: L08.9 Local infection of the skin and subcutaneous tissue, unspecified (principal)
CPT/HCPCS: 36415; 80053; 81001; 81003; 85025; 87070; 87077; 87086; 87181; 87205